=== PATIENT | male | born 1945 | race Caucasian/White ===

== ENCOUNTER 2017-12-12 11:51 | Observation (INO) | payer OTHER, SELFPAY ==
[2017-12-12] VITALS (9 sets, daily range): BP systolic 137–182; BP diastolic 63–95; PULSE 56–81; RESP 16–20; TEMP 36.3–37.1; O2SAT 96–98; BMI 23.9
--- NOTE | 2017-12-12 12:29 | PM.HP.1 ---
History of Present Illness Date Patient Seen: 12/12/17 Time Patient Seen: 12:41 Chief complaint: MELENA/POLYARTHRITIS Narrative: this patient presents with a him going melena and weakness and dizziness. I saw him on Sunday in the office he was complaining of some weakness and episodes of melena over the weekend. He appeared to be hemodynamically stable at that point and had not had a bowel movement for two days so I did some labs on him check the stool for blood and have him come back in today to the clinic. He had another melena episode on Sunday evening and continues to feel weak he's been holding his blood pressure medications hematocrit on Sunday was 25. He has also been complaining of arthritis symptoms increasing over st few days or weeks and mostly in his hands. His CRP was elevated at 7. Patient History Medical History Hypertension (Acute) Family & Social History Social History: household members none Prior Living Arrangements Apartment/Condo Safety & Behavioral: Feels Safe in Current Yes Environment Been Physically Hurt or No Threatened By a Person Suicidal Ideation Description None Tobacco & Substance use: Tobacco type cigarettes,cannabis/marijuana Smoking Status Former smoker Smoking packs per day 2 alcohol intake current alcohol intake frequency a few times a week Substance Use Type marijuana Meds Home Medications Medication Instructions Recorded Confirmed Type amlodipine 10 mg PO DAILY 12/12/17 12/12/17 History metoprolol tartrate 25 mg PO DAILY 12/12/17 12/12/17 History Allergies Allergy/AdvReac Type Severity Reaction Status Date / Time lisinopril Allergy Cramping Verified 12/12/17 12:32 of the Muscles Review of Systems Review of Systems All systems reviewed & are unremarkable except as noted in HPI and below Exam Narrative Exam Narrative: Pleasant male no acute distress looking older than his stated age. He does look rather pale in general. No jaundiced however. Oropharynx clear neck supple no JVD lungs no wheezing heart regular rhythm abdomen soft nontender extremities trace edema skin warm and dry neurological alert oriented no focal deficit speech normal. Assessment & Plan Plan: Assessment/Plan Narrative: one. Acute GI bleed with blood loss anemia hematocrit 25 as of Sunday. The patient was placed on observation statserial hematocrits rechecked. Consult to surgery for EGD. Transfuse if he drops below 24. Plan to also check a protime INR. IV fluids and n.p.o. status for now Protonix IV. 2. Polyarthritis with elevated ESR plan to check rheumatoid factor. Quality VTE Deep Vein Thrombosis/Pulmonary Embolism Present on Admission: No
[2017-12-12] MEDS: DEXTROSE 5%-0.9% NS 1,000 ML 100 ML IV (12:30)
[2017-12-12] MEDS: PANTOPRAZOLE 40 MG VIAL IV ×2 (12:30→19:54)
[2017-12-12 12:38] LABS: Hemoglobin 8.2 g/dL (13.5-17.5); Neutrophils Absolute Auto 6100 /uL (3000-5900)
[2017-12-12 12:44] LABS: Add Manual Diff / Slide Review NO; Basophils Percent Auto 1.3 % (0-2); Mean Corpuscular HGB Conc 35.4 % (30-36); Mean Corpuscular Hemoglobin 33.2 PG (26-34); Mean Corpuscular Volume 93.7 fL (80-100); Monocytes Percent Auto 12.1 % (3-14); Neutrophils Percent Auto 69.6 % (50-75); Platelet Count 298 X10^3/uL (150-400); Red Blood Cell Count 2.48 X10^6/uL (4.5-5.9); Red Cell Distribution Width 13.9 % (11.6-14.8); White Blood Cell Count 8.7 X10^3/uL (4.5-11.0)
[2017-12-12 12:45] LABS: Hematocrit 23.2 % (41-53)
[2017-12-12 12:50] LABS: Alanine Aminotransferase 66 IU/L (21-72); Albumin Globulin Ratio 1.3 (1.0-2.8); Alkaline Phosphatase 32 U/L (38-126); Aspartate Aminotransferase 49 IU/L (17-59); BUN Creatinine Ratio 23.3 (6-22); Bilirubin Total 0.6 mg/dL (0.2-1.3); Blood Urea Nitrogen 21 mg/dL (9-20); Calcium 8.6 mg/dL (8.4-10.2); Carbon Dioxide 23 mmol/L (22-32); Chloride 103 mmol/L (98-107); Estimated Glomerular Filt Rate > 60.0 mL/min (>60); Globulin 3.1 g/dL (1.7-4.1); Glucose 103 mg/dL (80-110); Potassium 4.5 mmol/L (3.4-5.1); Sodium 137 mmol/L (137-145); Total Protein 7.1 g/dL (6.3-8.2)
[2017-12-12 12:51] LABS: HEMOLYSIS 125 (0-50)
--- NOTE | 2017-12-12 13:13 | PC.ADMIT ---
Admission Note: Patient arrived to room 105 at 1200, direct admit from Dr. Holland's office, walked self to room - steady on feet. Alert and oriented x3. Denies any abdominal pain or nausea. Reports his last stool was 12/10 and was black and tarry. Denies any lightheadedness or dizziness. Oriented to room and to bed/tv/call light controls. Clothing placed in room closet and wallet locked up in safe. Call light within reach, using appropriately to make needs known. The patient,Kelsea Merrill,72 y/o, was given written information regarding hospital policies, unit procedures and contact persons. Patient's smoking status: Former smoker. Vital Signs - 8 hr 12/12/17 12:41 Temperature 97.5 F L Pulse Rate 81 Respiratory Rate 18 Blood Pressure 182/95 H Pulse Oximetry 98
[2017-12-12] MEDS: METOPROLOL 25 MG TABLET PO (14:06)
[2017-12-12 20:59] LABS: Hematocrit 26.3 % (41-53)
[2017-12-13] VITALS (19 sets, daily range): BP systolic 94–164; BP diastolic 56–81; PULSE 60–73; RESP 11–20; TEMP 35.9–37.6; O2SAT 95–97
--- NOTE | 2017-12-13 | PATH_ITS ---
[facility] Accession Number: [id number] . 01 Material submitted: . DUODENAL AND GASTRIC ULCER BIOPSIES . 02 Diagnosis: Duodenum And Stomach Ulcer, Biopsies: Duodenal mucosal with peptic duodenitis, including mild active inflammation and gastric surface foveolar metaplasia. Negative for intraepithelial lymphocytosis or villous blunting. Separate fragments of antral mucosa with no diagnostic abnormality. No evidence of Helicobacter on H/E stain. Negative for intestinal metaplasia in the gastric mucosa. Negative for dysplasia and malignancy. I/12/14/2017 . 02 Electronically signed: . Clemencia Reinoso MD, Pathologist NPI- [id number] . 01 Gross description: . Received in one formalin-filled container, labeled with the patient's name, labeled duodenal and gastric ulcer, are two 0.2-0.3 cm portions of tissue, entirely submitted in one cassette. ([id number]) /FRR . 02 Pathologist provided ICD-10: R10.9 . 02 CPT . 988362 Performed at: 01 [facility] [address] [id number] MD Néstor Young MD Phone: [phone] Performed at: 02 [facility] [address] [place], [place] [id number] MD Rahat Cardoza MD Phone: [phone]
[2017-12-13 00:28] LABS: Hematocrit 27.3 % (41-53)
[2017-12-13] MEDS: ACETAMINOPHEN 325 MG TABLET 650 MG PO (00:29)
[2017-12-13 06:04] LABS: Hematocrit 26.9 % (41-53)
[2017-12-13 06:28] LABS: Rheumatoid Factor < 8.6 IU/mL (<12.0)
[2017-12-13] MEDS: METOPROLOL 25 MG TABLET PO (09:09)
[2017-12-13] MEDS: PANTOPRAZOLE 40 MG VIAL IV ×2 (09:13→21:51)
--- NOTE | 2017-12-13 09:17 | PM.PN.1 ---
Subjective Date Patient Seen: 12/13/17 Time Patient Seen: 08:30 Interval history: Patient reports no abdominal pain, with his last bowel movement 3 days ago. He has pain in his right pinky finger, as well as diffusely to a lesser degree in his knuckles in both hands and wrists. He denies aspirin or NSAID use. Exam Vital Signs (past 8 hours): Vital Signs - 8 hr 12/13/17 03:57 12/13/17 03:58 Temperature 98.1 F Pulse Rate 70 Respiratory Rate 15 Blood Pressure 160/81 H Pulse Oximetry 97 97 Pulse Oximetry 97 Oxygen Delivery Method Room Air Oxygen Flow Rate 0 Narrative Exam Narrative: General: Patient appears comfortable, in no apparent distress HEENT: Pupils equal round reactive, mucous membranes pink and moist Neck: Supple Lungs: Clear to auscultation Cardiac: Regular rate and rhythm without appreciable murmur Abdomen: Soft, nontender, nondistended, no guarding, rebound or rigidity Extremities: Without edema neurologic alert, oriented, grossly nonfocal Dermatologic: No rash or skin lesions Musculoskeletal: Mild tenderness and swelling in the right pinky finger, without evidence in a vitas and hands or wrists Objective Labs Result Diagrams: 12/13/17 09:36 12/12/17 12:25 Labs: Laboratory Results - last 24 hr 12/12/17 12/12/17 12/12/17 12:25 12:25 12:25 WBC 8.7 RBC 2.48 L Hgb 8.2 L Hct 23.2 L MCV 93.7 MCH 33.2 MCHC 35.4 RDW 13.9 Plt Count 298 Neut % (Auto) 69.6 Lymph % (Auto) 13.0 L [place] % (Auto) 12.1 Eos % (Auto) 4.0 Baso % (Auto) 1.3 Neut # (Auto) 6100 H Sodium 137 Potassium 4.5 Chloride 103 Carbon Dioxide 23 BUN 21 H Creatinine 0.90 Estimated GFR > 60.0 BUN/Creatinine Ratio 23.3 H Glucose 103 Calcium 8.6 Total Bilirubin 0.6 AST 49 ALT 66 Alkaline Phosphatase 32 L Total Protein 7.1 Albumin 4.0 Globulin 3.1 Albumin/Globulin Ratio 1.3 Nasal Screen MRSA (PCR) Rheumatoid Factor Blood Type A Positive Antibody Screen Negative Crossmatch See Detail 12/12/17 12/12/17 12/13/17 12:30 18:00 00:17 WBC RBC Hgb Hct 26.3 L 27.3 L MCV MCH MCHC RDW Plt Count Neut % (Auto) Lymph % (Auto) [place] % (Auto) Eos % (Auto) Baso % (Auto) Neut # (Auto) Sodium Potassium Chloride Carbon Dioxide BUN Creatinine Estimated GFR BUN/Creatinine Ratio Glucose Calcium Total Bilirubin AST ALT Alkaline Phosphatase Total Protein Albumin Globulin Albumin/Globulin Ratio Nasal Screen MRSA (PCR) Negative for mrsa Rheumatoid Factor Blood Type Antibody Screen Crossmatch 12/13/17 12/13/17 05:55 05:55 WBC RBC Hgb Hct 26.9 L MCV MCH MCHC RDW Plt Count Neut % (Auto) Lymph % (Auto) [place] % (Auto) Eos % (Auto) Baso % (Auto) Neut # (Auto) Sodium Potassium Chloride Carbon Dioxide BUN Creatinine Estimated GFR BUN/Creatinine Ratio Glucose Calcium Total Bilirubin AST ALT Alkaline Phosphatase Total Protein Albumin Globulin Albumin/Globulin Ratio Nasal Screen MRSA (PCR) Rheumatoid Factor < 8.6 Blood Type Antibody Screen Crossmatch Assessment & Plan Plan: Assessment/Plan Narrative: 1. Acute gastrointestinal bleed with blood loss anemia. Etiology unclear without recent NSAID or aspirin use per patient. Hematocrit stable over the past few days. His baseline hematocrit was 40% on 08/31/2017. Monitor serial hematocrits. Anticipate upper endoscopy today. 2. Acute blood loss anemia due to 1, status post 2 unit packed red blood cell transfusion 12/12/2017. No indication for further transfusion. Continue to monitor. 3. Polyarthritis with elevated sedimentation rate. Rheumatoid factor pending. Consider further outpatient evaluation. Avoid NSAIDs. Quality VTE Deep Vein Thrombosis/Pulmonary Embolism Present on Admission: No
[2017-12-13 09:46] LABS: Hematocrit 29.4 % (41-53); Hemoglobin 10.2 g/dL (13.5-17.5)
[2017-12-13 09:50] LABS: Prothrombin Time 11.2 SECONDS (10.1-12.7)
[2017-12-13 09:53] LABS: PTT Partial Thromboplastin Tim 30 SECONDS (26.4-36.2)
--- NOTE | 2017-12-13 10:51 | CM.DANOTE ---
DCP: assessment: case receivedf, EMR reviewed and met with pt. Introduced self and role. DCP template completed with info currently available. PT is a 72 year old male who lives independently in [place]. Admitted to care of hospitalist team yesterday. PCP: Dr. Holland Paynatalia: Preston COBIAN. Work up for acute GI bleed/stool is in process. Pt may d/c home later today if deemed stable for outpt followup. He says several friends are waiting to hear when he will d/c and he will call one of them to pick him up at d/c. P: home as per above. Follow prn
--- NOTE | 2017-12-13 13:41 | PM.CN ---
History of Present Illness Date Patient Seen: 12/13/17 Time Patient Seen: 13:42 Chief complaint: MELENA/POLYARTHRITIS Reason for consult: GI hemorrhage Requesting provider: Rodrigo Holland Narrative: Mr. Merrill is a pleasant gentleman of 72 years who was admitted yesterday afternoon by Dr. Holland with complaint of weakness and melena. He was found to be significantly anemic and has received 2 units of packed red cells overnight. I have been consulted regarding the possibility of EGD as it is felt this bleed is most consistent with upper GI hemorrhage. [facility] Medical History Hypertension (Acute) Polyarthritis (Acute) Surgical History History of jeremiah hole surgery (Acute) Social History household members: none Smoking Status: Former smoker alcohol intake: current Meds Home Medications Medication Instructions Recorded Confirmed Type amlodipine 10 mg PO DAILY 12/12/17 12/12/17 History metoprolol tartrate 25 mg PO DAILY 12/12/17 12/12/17 History Allergies Allergy/AdvReac Type Severity Reaction Status Date / Time lisinopril Allergy Cramping Verified 12/12/17 12:32 of the [facility] Review of Systems Review of Systems All systems reviewed & are unremarkable except as noted in HPI and below Exam Vital Signs (past 8 hours): Vital Signs - 8 hr 12/13/17 09:00 12/13/17 12:10 Temperature 97.7 F 97.7 F Pulse Rate 67 72 Respiratory Rate 16 17 Blood Pressure 164/75 H 150/69 H Pulse Oximetry 97 96 Pulse Oximetry 96 Oxygen Delivery Method Room Air Oxygen Flow Rate 0 Narrative Exam Narrative: Very pleasant thin gentleman in no obvious distress. He reports he wants to get this over with quickly so he can go home. He also had asked if on the 1 who makes a decision regarding when he can go home. HEENT: Normocephalic and atraumatic, pupils equal round reactive to light accommodation with anicteric sclera Lungs: Clear bilaterally Heart: Regular rate and rhythm Abdomen: Soft, minimal tenderness to palpation, active bowel sounds. Extremities: No edema Objective Labs Result Diagrams: 12/13/17 09:36 12/12/17 12:25 Labs: Laboratory Results - last 24 hr 12/12/17 12/12/17 12/12/17 12:25 12:30 18:00 Hgb Hct 26.3 L PT INR APTT Nasal Screen MRSA (PCR) Negative for mrsa Rheumatoid Factor Blood Type A Positive Antibody Screen Negative Crossmatch See Detail 12/13/17 12/13/17 12/13/17 00:17 05:55 05:55 Hgb Hct 27.3 L 26.9 L PT INR APTT Nasal Screen MRSA (PCR) Rheumatoid Factor < 8.6 Blood Type Antibody Screen Crossmatch 12/13/17 12/13/17 09:36 09:36 Hgb 10.2 L Hct 29.4 L PT 11.2 INR 1.0 APTT 30 Nasal Screen MRSA (PCR) Rheumatoid Factor Blood Type Antibody Screen Crossmatch Assessment & Plan Plan: Assessment/Plan Narrative: 72-year-old gentleman with a recent upper GI hemorrhage that now seems to stop. He received 2 units of blood overnight and his hemoglobin is stabilized at 10.2. We discussed the risks and benefits of esophageal gastroduodenoscopy the patient has expressed a desire to have the procedure.
--- NOTE | 2017-12-13 13:44 | P.CONS_ITS ---
History of Present Illness Date Patient Seen: 12/13/17 Time Patient Seen: 13:42 Chief complaint: MELENA/POLYARTHRITIS Reason for consult: GI hemorrhage Requesting provider: Rodrigo Holland Narrative: Mr. Merrill is a pleasant gentleman of 72 years who was admitted yesterday afternoon by Dr. Holland with complaint of weakness and melena. He was found to be significantly anemic and has received 2 units of packed red cells overnight. I have been consulted regarding the possibility of EGD as it is felt this bleed is most consistent with upper GI hemorrhage. [facility] Medical History Hypertension (Acute) Polyarthritis (Acute) Surgical History History of jeremiah hole surgery (Acute) Social History household members: none Smoking Status: Former smoker alcohol intake: current Meds Home Medications Medication Instructions Recorded Confirmed Type amlodipine 10 mg PO DAILY 12/12/17 12/12/17 History metoprolol tartrate 25 mg PO DAILY 12/12/17 12/12/17 History Allergies Allergy/AdvReac Type Severity Reaction Status Date / Time lisinopril Allergy Cramping Verified 12/12/17 12:32 of the [facility] [place] [facility] Review of Systems Review of Systems All systems reviewed & are unremarkable except as noted in HPI and below Exam Vital Signs (past 8 hours): Vital Signs - 8 hr 3 12/13/17 09:00 12/13/17 12:10 Temperature 97.7 F 97.7 F Pulse Rate 67 72 Respiratory Rate 16 17 Blood Pressure 164/75 H 150/69 H Pulse Oximetry 97 96 Pulse Oximetry 96 Oxygen Delivery Method Room Air Oxygen Flow Rate 0 Narrative Exam Narrative: Very pleasant thin gentleman in no obvious distress. He reports he wants to get this over with quickly so he can go home. He also had asked if on the 1 who makes a decision regarding when he can go home. HEENT: Normocephalic and atraumatic, pupils equal round reactive to light accommodation with anicteric sclera Lungs: Clear bilaterally Heart: Regular rate and rhythm Abdomen: Soft, minimal tenderness to palpation, active bowel sounds. Extremities: No edema Objective Labs Result Diagrams: 12/13/17 09:36 06/13/18 12:25 Labs: Laboratory Results - last 24 hr 12/12/17 12/12/17 12/12/17 12:25 12:30 18:00 Hgb Hct 26.3 L PT INR APTT Nasal Screen MRSA (PCR) Negative for mrsa Rheumatoid Factor Blood Type A Positive Antibody Screen Negative Crossmatch See Detail 12/13/17 12/13/17 12/13/17 00:17 05:55 05:55 Hgb Hct 27.3 L 26.9 L PT INR APTT Nasal Screen MRSA (PCR) Rheumatoid Factor < 8.6 Blood Type Antibody Screen Crossmatch 12/13/17 12/13/17 09:36 09:36 Hgb 10.2 L Hct 29.4 L PT 11.2 INR 1.0 APTT 30 Nasal Screen MRSA (PCR) Rheumatoid Factor Blood Type Antibody Screen Crossmatch Assessment & Plan Plan: Assessment/Plan Narrative: 72-year-old gentleman with a recent upper GI hemorrhage that now seems to stop. He received 2 units of blood overnight and his hemoglobin is stabilized at 10.2. We discussed the risks and benefits of esophageal gastroduodenoscopy the patient has expressed a desire to have the procedure.
[2017-12-13 14:33] LABS: Hematocrit 30.4 % (41-53)
[2017-12-13] MEDS: LIDOCAINE 4% SOLN 50 ML 20 ML TOP (15:08)
[2017-12-13] MEDS: TETRACAINE/BENZOCAINE/BUTAMBEN (CETACAINE) BOTTLE 1 SPRAY TOP (15:08)
[2017-12-13] MEDS: MIDAZOLAM 5 MG/5 ML VIAL IV (15:08)
--- NOTE | 2017-12-13 15:08 | PM.OP.1 ---
Operative Date/Time/Diagnoses - Date of procedure: 12/13/17 Time of procedure: 15:09 Pre-op diagnosis: Upper GI hemorrhage Post-op diagnosis: same Procedure & Clinicians Procedure: Esophagogastroduodenoscopies with biopsies Same procedure as scheduled: Yes Indications: Upper GI hemorrhage Surgeon: Meenakshi Crowell Click Yes if Unassisted: Yes Anesthesia Type: Sedation (Versed 4 mg; fentanyl 150 mcg) Operative Notes Findings: 1. Duodenitis with heaped up granulation tissue at the junction of 1st and 2nd portions the duodenum consistent with ulcer formation. No active bleeding 2. Two areas of ulceration with shallow crater formation at the pyloric channel. No active bleeding 3. GE junction at 35 cm from the incisors with a 5 cm hiatal hernia 4. Normal-appearing posterior oropharynx and esophagus 5. Gastric and duodenal ulcers not actively bleeding but likely because of the recent upper GI hemorrhage Closure Type: not applicable Estimated Blood Loss (mL): 1 Procedure in detail: After obtaining informed consent, the patient was brought to the GI suite and placed in the left lateral decubitus position on the examination table. After placement of appropriate monitors, the patient was given incremental doses of Versed and Fentanyl until an appropriate level of sedation was achieved. A time out was held per SCOAP protocol. A bite block was gently placed between the patient's teeth. The endoscope was lubricated and then passed into the patient's posterior oropharynx. The esophagus was cannulated under direct vision and the scope was passed to the second portion of the duodenum without difficulty. The scope was then withdrawn with careful examination of all areas of the upper GI tract and mucosa. In the stomach, the instrument was retroflexed and the GE junction examined. The scope was straightened and the procedure continued with examination of the remainder of the upper GI tract. Findings are noted above. Air was aspirated from the stomach and the endoscope gently removed from the esophagus. The patient was allowed to awaken from sedation without difficulty and taken to the post-anesthesia care unit in good condition. Complications: none Condition: stable Disposition: PACU Plan for aftercare: 1. Return to ICU for continued care 2. Stable for discharge from a surgical perspective
[2017-12-13] MEDS: fentaNYL 250 MCG/5 ML INJ IV (15:09)
--- NOTE | 2017-12-13 15:39 | SUR.PHASEI ---
REPORT CALLED TO OLAMIDE ROQUE IN ICU. PT IN STABLE CONDITION, VSS. IV SITE CLEAR. PT ALERT AND TALKING TO RN. PT TOLERATING ORAL INTAKE WITHOUT ANY DIFFICULTLY. NO DIFFICULTLY SWALLOWING. PT DENIES ANY PAIN OR DISCOMFORT AT THIS TIME. AWAITING TO TRANSPORT PT BACK TO FLOOR.
--- NOTE | 2017-12-13 16:18 | SUR.PHASEI ---
PT TRANSFERED TO ACUTE CARE FLOOR IN STABLE CONDITION, VSS. BEDSIDE REPORT GIVEN TO OLAMIDE BERRY. PT ALERT AND TALKING TO STAFF. TRANSFERED CARE OF PT TO OLAMIDE BERRY AT THIS TIME.
[2017-12-13] MEDS: DEXTROSE 5%-0.9% NS 1,000 ML 100 ML IV (16:31)
--- NOTE | 2017-12-14 01:15 | PC.NURSE ---
Kelsea was comfortable at change of shift, denied any pain, stated that he wanted to sleep, I was not able to get any sleep last night, constant interruptions. IV infusing right posterior FA D5 NS @ 100 ml/hour. sats 97 % on room air, VS stable.
[2017-12-14 05:34] VITALS: BP 138/69; PULSE 71; RESP 16; TEMP 36.3; O2SAT 96
[2017-12-14 05:37] VITALS: O2SAT 99
[2017-12-14 06:29] LABS: Add Manual Diff / Slide Review NO; Basophils Percent Auto 0.9 % (0-2); Eosinophils Percent Auto 4.1 % (2-4); Hematocrit 28.1 % (41-53); Hemoglobin 9.6 g/dL (13.5-17.5); Lymphocytes Percent Auto 8.6 % (25-40); Mean Corpuscular HGB Conc 34.1 % (30-36); Mean Corpuscular Hemoglobin 31.8 PG (26-34); Monocytes Percent Auto 8.1 % (3-14); Neutrophils Absolute Auto 9000 /uL (3000-5900); Neutrophils Percent Auto 78.3 % (50-75); Platelet Count 263 X10^3/uL (150-400); Red Blood Cell Count 3.02 X10^6/uL (4.5-5.9); Red Cell Distribution Width 14.5 % (11.6-14.8); White Blood Cell Count 11.5 X10^3/uL (4.5-11.0)
[2017-12-14 07:40] VITALS: O2SAT 97
[2017-12-14 08:00] VITALS: BP 155/82; PULSE 75; RESP 18; TEMP 36.7; O2SAT 97
[2017-12-14] MEDS: SODIUM CHLORIDE 0.9% FLUSH 10 ML IV (08:44)
[2017-12-14] MEDS: PANTOPRAZOLE 40 MG VIAL IV (08:45)
[2017-12-14] MEDS: METOPROLOL 25 MG TABLET PO (08:46)
--- NOTE | 2017-12-14 10:27 | P.DS_ITS ---
History of Present Illness Date Patient Seen: 12/14/17 Time Patient Seen: 10:09 Chief complaint: MELENA/POLYARTHRITIS Narrative: This patient presents with a him going melena and weakness and dizziness. I saw him on Sunday in the office he was complaining of some weakness and episodes of melena over the weekend. He appeared to be hemodynamically stable at that point and had not had a bowel movement for two days so I did some labs on him check the stool for blood and have him come back in today to the clinic. He had another melena episode on Sunday evening and continues to feel weak he's been holding his blood pressure medications hematocrit on Sunday was 25. He has also been complaining of arthritis symptoms increasing over past few days or weeks and mostly in his hands. His CRP was elevated at 7. Discharge Providers Date of admission: 12/12/17 11:51 Primary care physician: Rodrigo Holland MD Consults: 12/12/17 12:21 Consult to General Surgery Routine Comment: Consulting Provider: Meenakshi Crowell Reason for consultation: gi bleed Has provider been notified: Yes Discharge provider: CONSTANZA Mendes Discharge Date: 12/14/17 Summary Discharge Diagnosis: 1. Upper GI hemorrhage 2. Polyarthritis 3. Hypertension Hospital Course: This is a summary for 2 day stay for this 72-year-old patient who was admitted with approximately a week of having melanotic stools, weakness and dizziness. He had a hemoglobin of 8.2 at admission and was transfused with 2 units of packed red blood cells. Repeat hemoglobin was 10.2. General surgery was consulted for an EGD as it was felt that his bleed is most consistent with an upper GI hemorrhage. The EGD revealed duodenitis with heaped up granulation tissue at the junction of the 1st and 2nd portions of the duodenum consistent with ulcer for formation. No active bleeding was seen at the time. He also has a 5 cm hiatal hernia. There are gastric and duodenal ulcers but not actively bleeding. His posterior oropharynx and esophagus appeared normal. Patient's hemoglobin this morning on date of discharge was 9.6. No active signs of bleeding. He states he has had his 1st normal bowel movement without any melena in over a week. He is taking a regular diet without abdominal discomfort, nausea, emesis. His vital signs remained unremarkable during the hospitalization. He will remain on his amlodipine and metoprolol for control of his blood pressure. He will need to be followed for his hemoglobin levels. He has been provided discharge instructions for GI bleed , gastritis, and has been encouraged to limit or stop his intake of alcohol. Mr. Merrill is stable at this point in time and ready for discharge. Exam Vital Signs (past 8 hours): Vital Signs - 8 hr 3 12/14/17 05:34 12/14/17 05:37 12/14/17 07:40 Temperature 97.3 F L Pulse Rate 71 Respiratory Rate 16 Blood Pressure 138/69 H Pulse Oximetry 96 99 97 3 12/14/17 08:00 Temperature 98.1 F Pulse Rate 75 Respiratory Rate 18 Blood Pressure 155/82 H Pulse Oximetry 97 Pulse Oximetry 97 Oxygen Delivery Method Room Air Oxygen Flow Rate 0 Narrative Exam Narrative: Patient sitting in bed Const General: cooperative, healthy appearing, comfortable and well developed Nutritional Appearance: average body habitus Orientation: alert, awake and oriented x3 HENMT Head: normal to inspection, normocephalic and atraumatic Mouth: oral mucosae normal Eyes General: appearance normal, both eyes and all related structures Pupils: PERRL Neck Neck: normal visual inspection, full ROM and supple Other: No JVD, lymphadenopathy Chest Chest: normal inspection of the chest Resp Effort & Inspection: normal respiratory effort and able to speak in complete sentences Auscultation: clear to auscultation bilaterally Cardio Rate: regular rate Heart Sounds: S1 normal and S2 normal Other: No murmurs, rubs, clicks GI Inspection: normal to inspection Palpation: soft Auscultation: normal bowel sounds Back/Spine/Pelvis Back: normal to inspection Skin General: no rashes or lesions noted Neuro General: alert, awake and oriented x3 Extrem Other: Mild tenderness and swelling in right hand. Psych Appearance: grossly normal Speech and Movement: speech and movement normal Mood: congruent mood Affect: normal affect Attitude: cooperative Thought Process: normal Thought Content: normal Judgment: judgment good Objective Labs Result Diagrams: 12/14/17 06:00 12/12/17 12:25 Labs: Laboratory Results - last 24 hr 12/13/17 12/14/17 14:15 06:00 WBC 11.5 H RBC 3.02 L Hgb 9.6 L Hct 30.4 L 28.1 L MCV 93.0 MCH 31.8 MCHC 34.1 RDW 14.5 Plt Count 263 Neut % (Auto) 78.3 H Lymph % (Auto) 8.6 L [place] % (Auto) 8.1 Eos % (Auto) 4.1 H Baso % (Auto) 0.9 Neut # (Auto) 9000 H Discharge Plan Discharge Plan Patient Disposition: Home, Self-Care Discharge Med Rec/Prescriptions Prescriptions: New pantoprazole [Protonix] 40 mg tablet,delayed release (DR/EC) 40 mg PO QAM Qty: 30 RF: 3 Continue amlodipine 10 mg tablet 10 mg PO DAILY RF: 0 metoprolol tartrate 25 mg tablet 25 mg PO DAILY RF: 0 Follow up/Referrals: Rodrigo Holland MD [Primary Care Provider] - 3-5 Days (Appt Sundaydecember 17 @[address] Eric nielson) Provider Discharge Instructions Diet: Diet as Tolerated and Regular Diet comment: Avoid alcohol intake Activity: As tolerated Oxygen: Room air Visit Report/Discharge Packet Instructions: Gastritis, DI for Gastritis, Gastrointestinal Bleeding Visit Report Forms: Stroke Signs & Symptoms Discharge Data Primary Care Provider: Rodrigo Holland Attending Provider: Rodrigo Holland Admit Date/Time: 12/12/17 11:51 Quality VTE Deep Vein Thrombosis/Pulmonary Embolism Present on Admission: No
== END 2017-12-14 11:07 | disposition home or self-care (01) ==
LOC: ICU 12-13 13:23 → AC 12-13 16:31
PROVIDERS: Internal Medicine; Surgery; Admitting Provider Internal Medicine; PCP Internal Medicine; Visit Provider Internal Medicine
PROC: 0DJ08ZZ Inspection of Upper Intestinal Tract, Via Natural or Artificial Opening Endoscopic (ICD-10-PCS; CPT 43235; principal; 2017-12-13 15:00)
DX: K29.80 Duodenitis without bleeding (principal); K25.9 Gastric ulcer, unspecified as acute or chronic, without hemorrhage or perforation; K26.9 Duodenal ulcer, unspecified as acute or chronic, without hemorrhage or perforation; K92.2 Gastrointestinal hemorrhage, unspecified; K92.1 Melena; M13.0 Polyarthritis, unspecified; K44.9 Diaphragmatic hernia without obstruction or gangrene; I10 Essential (primary) hypertension; Z87.891 Personal history of nicotine dependence
CPT/HCPCS: 43239; 36415; 36430; 36592; 80053; 85014; 85018; 85025; 85610; 85730; 86430; 86850; 86900; 86901; 87797; G0378; P9016; C9113; G0379; J2250; J3010

== ENCOUNTER → 2017-12-21 10:31 | Outpatient (CLI) | payer OTHER, SELFPAY ==
[2017-12-12 12:00] VITALS: BMI 23.9
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
== END ==
PROVIDERS: PCP Internal Medicine; Visit Provider Student in an Organized Health Care Education/Training Program
DX: M25.549 Pain in joints of unspecified hand (principal); M19.042 Primary osteoarthritis, left hand; M19.041 Primary osteoarthritis, right hand
CPT/HCPCS: 73130

== ENCOUNTER → 2020-07-08 10:00 | Outpatient (CLI) | payer OTHER, MEDICAID, SELFPAY ==
[2017-12-12 12:00] VITALS: BMI 23.9
[2020-07-08 11:29] LABS: Add Manual Diff / Slide Review NO; Basophils Absolute Auto 200 /uL (0-100); Basophils Percent Auto 1.9 % (0-2); Eosinophils Absolute Auto 300 /uL (0-450); Eosinophils Percent Auto 2.7 % (2-4); Hematocrit 37.7 % (41-53); Hemoglobin 12.7 g/dL (13.5-17.5); Lymphocytes Absolute Auto 1400 /uL (1100-4500); Mean Corpuscular HGB Conc 33.8 % (30-36); Mean Corpuscular Hemoglobin 31.5 PG (26-34); Mean Corpuscular Volume 93.3 fL (80-100); Monocytes Absolute Auto 1200 /uL (0-900); Neutrophils Absolute Auto 6300 /uL (1500-7000); Neutrophils Percent Auto 67.4 % (50-75); Platelet Count 352 X10^3/uL (150-400); Red Blood Cell Count 4.04 X10^6/uL (4.5-5.9); Red Cell Distribution Width 14.5 % (11.6-14.8); White Blood Cell Count 9.3 X10^3/uL (4.5-11.0)
[2020-07-08 12:32] LABS: Alanine Aminotransferase 18 IU/L (<50); Albumin 4.4 g/dL (3.5-5.0); Albumin Globulin Ratio 1.5 (1.0-2.8); Alkaline Phosphatase 43 U/L (38-126); Aspartate Aminotransferase 23 IU/L (17-59); BUN Creatinine Ratio 16.9 (6-22); Bilirubin Total 0.5 mg/dL (0.2-1.3); Blood Urea Nitrogen 23 mg/dL (9-20); Calcium 9.4 mg/dL (8.4-10.2); Carbon Dioxide 23 mmol/L (22-32); Chloride 104 mmol/L (98-107); Cholesterol 184 mg/dL (140-199); Estimated Glomerular Filt Rate 51.2 mL/min (>60); Globulin 2.9 g/dL (1.7-4.1); Glucose 111 mg/dL (80-110); HDL Cholesterol 52 mg/dL (40-60); HEMOLYSIS < 15 (0-50); LDL Cholesterol Calculated 96 mg/dL (<100); Potassium 4.7 mmol/L (3.4-5.1); Sodium 136 mmol/L (137-145); Total Protein 7.3 g/dL (6.3-8.2); Triglycerides 179 mg/dL (35-150)
== END ==
PROVIDERS: PCP Internal Medicine; Referring Provider Internal Medicine; Visit Provider Internal Medicine
DX: I10 Essential (primary) hypertension (principal); E78.2 Mixed hyperlipidemia
CPT/HCPCS: 36415; 80053; 80061; 85025

== ENCOUNTER → 2020-11-04 15:16 | Outpatient (CLI) | payer OTHER, SELFPAY ==
[2017-12-12 12:00] VITALS: BMI 23.9
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
== END ==
PROVIDERS: PCP Internal Medicine; Referring Provider Student in an Organized Health Care Education/Training Program; Visit Provider Student in an Organized Health Care Education/Training Program
DX: S22.41XA Multiple fractures of ribs, right side, initial encounter for closed fracture (principal); S22.42XA Multiple fractures of ribs, left side, initial encounter for closed fracture; R07.81 Pleurodynia; M54.9 Dorsalgia, unspecified; M47.816 Spondylosis without myelopathy or radiculopathy, lumbar region; V19.9XXA Pedal cyclist (driver) (passenger) injured in unspecified traffic accident, initial encounter
CPT/HCPCS: 71101; 72072; 72100

== ENCOUNTER 2020-11-05 09:48 | Inpatient (IN) | payer OTHER, MEDICAID, SELFPAY ==
[2017-12-12 12:00] VITALS: BMI 23.9
[2020-11-05] VITALS (19 sets, daily range): BP systolic 136–195; BP diastolic 64–99; PULSE 57–100; RESP 16–26; TEMP 36.2–36.6; O2SAT 90–98; BMI 26.4
[2020-11-05 10:22] LABS: Add Manual Diff / Slide Review NO; Basophils Absolute Auto 200 /uL (0-100); Basophils Percent Auto 0.7 % (0-2); Eosinophils Absolute Auto 0 /uL (0-450); Hematocrit 37.3 % (41-53); Hemoglobin 12.5 g/dL (13.5-17.5); Lymphocytes Absolute Auto 800 /uL (1100-4500); Lymphocytes Percent Auto 3.1 % (25-40); Mean Corpuscular HGB Conc 33.5 % (30-36); Mean Corpuscular Volume 92.6 fL (80-100); Monocytes Absolute Auto 2200 /uL (0-900); Monocytes Percent Auto 8.5 % (3-14); Neutrophils Absolute Auto 22700 /uL (1500-7000); Neutrophils Percent Auto 87.7 % (50-75); Platelet Count 352 X10^3/uL (150-400); Red Blood Cell Count 4.03 X10^6/uL (4.5-5.9); Red Cell Distribution Width 15.3 % (11.6-14.8); White Blood Cell Count 25.9 X10^3/uL (4.5-11.0)
[2020-11-05 10:24] LABS: INR 1.1 (0.9-1.3); Prothrombin Time 12.3 SECONDS (10.1-12.7)
[2020-11-05 10:26] LABS: PTT Partial Thromboplastin Tim 30 SECONDS (26.4-36.2)
[2020-11-05 10:28] LABS: Albumin 4.4 g/dL (3.5-5.0); Albumin Globulin Ratio 1.4 (1.0-2.8); Alkaline Phosphatase 42 U/L (38-126); Aspartate Aminotransferase 37 IU/L (17-59); BUN Creatinine Ratio 25.9 (6-22); Bilirubin Total 1.4 mg/dL (0.2-1.3); Blood Urea Nitrogen 29 mg/dL (9-20); Calcium 9.1 mg/dL (8.4-10.2); Carbon Dioxide 23 mmol/L (22-32); Chloride 97 mmol/L (98-107); Estimated Glomerular Filt Rate > 60.0 mL/min (>60); Globulin 3.2 g/dL (1.7-4.1); Glucose 217 mg/dL (80-110); Potassium 4.2 mmol/L (3.4-5.1); Sodium 134 mmol/L (137-145); Total Protein 7.6 g/dL (6.3-8.2)
[2020-11-05 10:34] LABS: Alanine Aminotransferase 27 IU/L (<50); HEMOLYSIS 28 (0-50)
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
[2020-11-05] MEDS: MORPHINE 2 MG/ML INJ IV ×2 (10:45→11:34)
[2020-11-05] MEDS: PANTOPRAZOLE 40 MG VIAL 80 MG IV (10:45)
[2020-11-05] MEDS: ONDANSETRON 4 MG/2 ML INJ IV ×2 (10:45→16:51)
[2020-11-05 11:02] LABS: Lactate (Lactic Acid) 4.9 mmol/L (0.7-2.1)
[2020-11-05] MEDS: SODIUM CHLORIDE 0.9% 1,000 ML 1000 ML IV ×2 (11:10→12:11)
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
[2020-11-05] MEDS: PIPERACILLIN-TAZO 4.5 GM/100 ML FROZ.PIGGY IV (12:02)
[2020-11-05 12:21] LABS: COVID19 - ADMIT (NP swab/PCR) Negative (Negative)
[2020-11-05 12:32] LABS: Reflexed Lactate in 2 Hours Y
[2020-11-05 12:54] LABS: Lactate 2HR (Lactic Acid Rflx) 1.1 mmol/L (0.7-2.1)
[2020-11-05] MEDS: SODIUM CHLORIDE 0.9% 1,000 ML 150 ML IV (13:50)
--- NOTE | 2020-11-05 15:17 | PC.NURSE ---
Admit note: Patient admitted to room 225 from ED, used slider board to transfer patient from [facility] to bed due to rib pain, chest guarding. Received on )2 at 2L via NC, 94%. IVF infusing. NPO. Dr. Curtis at bedside on arrival to floor [id number]. Awaiting for admit orders. Oriented to room, environment and plan of care. Call light within reach. Bedside shift report to Lucy QUIÑONEZ at [phone]
[2020-11-05] MEDS: HYDROCODONE/ACET 5/325 TABLET 1 TAB PO (16:19)
[2020-11-05] MEDS: DEXTROSE 5%-0.9% NS 1,000 ML 100 ML IV (16:19)
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
[2020-11-05] MEDS: PIPERACILLIN-TAZO 3.375 GM/50 ML FROZ.PIGGY IV (17:02)
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
[2020-11-05] MEDS: LIDOCAINE PATCH 1 EACH ADH..PATCH TOP (21:11)
[2020-11-05] MEDS: GABAPENTIN 300 MG CAPSULE PO (21:13)
[2020-11-05] MEDS: DOCUSATE 100 MG CAPSULE PO (21:13)
[2020-11-05] MEDS: OXYCODONE IR 10 MG TABLET PO (21:13)
--- NOTE | 2020-11-05 22:08 | PC.NURSE ---
Assumed care of patient at 1999 from Inna Ayala. Pt resting in bed comfortable at that time. Expiratory rattling to the lungs that clears when he takes a deep breath. Pt SaO2 ranging from 90-94% on 2LNC. Pt educated and encouraged to deep breathe and cough. Incentive spirometry instructions provided both by RN and RT. Pt able to demonstrate use of IS, reaching about 1000 per breath. PRN oxycodone and scheduled lidocaine patch/gabapentin/colace given around 2114. Upon rechecking pt at 2149, pt states these medications significantly helped his pain. Pt O2 sats still low 90s on the nasal cannula. Occasionally the prongs of the cannula will dislodge from nares or pulse oximeter will slide off of patient finger and sats will lower to the 80s, but when replaced oxygen saturations go back up to the 90s.
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
--- NOTE | 2020-11-05 23:50 | DI.CT.S_ITS ---
PROCEDURE: CT ANGIO CHEST PE PROTOCOL INDICATIONS: Desaturation requiring high flow, multiple rib fractures TECHNIQUE: After the administration of intravenous contrast, 2 mm thick sections acquired from the pulmonary apices to the posterior costophrenic angles. 3-dimensional maximum intensity projection (MIP) coronal and sagittal reformats were then acquired through the thorax. For radiation dose reduction, the following was used: automated exposure control, adjustment of mA and/or kV according to patient size. COMPARISON: [facility], CT, CT CHEST ABD PEL W CON, 11/05/2020, 10:52. [facility], CR, XR RIBS RT MIN 3V W CXR 1V, 11/04/2020, 15:24. [facility], CR, XR CHEST 1V, 11/05/2020, 23:13. FINDINGS: Image quality: Excellent. Pulmonary arteries: Pulmonary arteries are normal in size, and demonstrate no intraluminal filling defects to suggest central pulmonary embolism. Lungs and pleura: Small bilateral pleural effusions are seen, right larger than left. Overlying consolidative change is seen, which is attributed to atelectasis. Central and peripheral airways are patent. There is a small amount of debris seen within the trachea. Mediastinum: Heart size is normal, without pericardial effusion. No mediastinal or hilar adenopathy. Thoracic aorta is normal in caliber and enhancement. Esophagus is normal in caliber, without hiatal hernia. Esophageal wall thickening is seen distally. Bones and chest wall: Right lateral rib fractures are again seen involving ribs 3 through 9. No suspicious bony lesions. Thyroid gland demonstrates no significant abnormality. No axillary or supraclavicular adenopathy. Abdomen: Visualized upper abdominal solid organs appear normal in the early arterial phase of enhancement. IMPRESSION: Negative for pulmonary embolism. Right-sided rib fractures are again seen. No associated pneumothorax is seen. Small bilateral pleural effusions are seen, right larger than left, with associated overlying consolidation, which is attributed to atelectasis. Please consider a mild degree of infiltrate, however. Esophageal wall thickening is seen. Please consider soft the joint is. Note: No significant discrepancy from the preliminary report. Dictated by: Oskar Belle M.D. on 11/06/2020 at 8:05 Approved by: Oskar Belle M.D. on 11/06/2020 at 8:08
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
[2020-11-06] VITALS (14 sets, daily range): BP systolic 108–164; BP diastolic 53–77; PULSE 73–84; RESP 16–24; TEMP 36.5–37.1; O2SAT 89–96; BMI 25.1
[2020-11-06 01:00] LABS: HCO3 ABG 22 mmol/L (22-26); Oxygen Saturation ABG 87 % (95-100); PO2 ABG 52 mmHg (80-100); TCO2 ABG 23 mmol/L (21-31); pH ABG 7.41 (7.35-7.45)
[2020-11-06 01:03] LABS: Fractionated Inspired Oxygen 60
[2020-11-06 01:09] LABS: BUN Creatinine Ratio 20.6 (6-22); Blood Urea Nitrogen 21 mg/dL (9-20); Calcium 7.9 mg/dL (8.4-10.2); Carbon Dioxide 25 mmol/L (22-32); Chloride 105 mmol/L (98-107); Estimated Glomerular Filt Rate > 60.0 mL/min (>60); Glucose 128 mg/dL (80-110); HEMOLYSIS < 15 (0-50); Lactate (Lactic Acid) 1.1 mmol/L (0.7-2.1); Potassium 4.4 mmol/L (3.4-5.1); Sodium 135 mmol/L (137-145)
[2020-11-06 01:13] LABS: Add Manual Diff / Slide Review NO; Basophils Absolute Auto 100 /uL (0-100); Basophils Percent Auto 0.6 % (0-2); Eosinophils Absolute Auto 100 /uL (0-450); Eosinophils Percent Auto 0.8 % (2-4); Hemoglobin 10.1 g/dL (13.5-17.5); Lymphocytes Absolute Auto 1100 /uL (1100-4500); Lymphocytes Percent Auto 6.8 % (25-40); Mean Corpuscular HGB Conc 33.7 % (30-36); Mean Corpuscular Hemoglobin 31.3 PG (26-34); Mean Corpuscular Volume 93.1 fL (80-100); Monocytes Absolute Auto 1300 /uL (0-900); Monocytes Percent Auto 8.4 % (3-14); Neutrophils Absolute Auto 13400 /uL (1500-7000); Neutrophils Percent Auto 83.4 % (50-75); Platelet Count 270 X10^3/uL (150-400); Red Blood Cell Count 3.22 X10^6/uL (4.5-5.9); Red Cell Distribution Width 15.4 % (11.6-14.8); White Blood Cell Count 16.1 X10^3/uL (4.5-11.0)
[2020-11-06 01:19] LABS: NT-proBNP (BNP-Adult 18+) 423 pg/mL (<125)
[2020-11-06] MEDS: PIPERACILLIN-TAZO 3.375 GM/50 ML FROZ.PIGGY IV ×3 (03:01→16:57)
[2020-11-06] MEDS: DEXTROSE 5%-0.9% NS 1,000 ML 100 ML IV (03:03)
[2020-11-06 05:13] LABS: Add Manual Diff / Slide Review NO; Basophils Absolute Auto 200 /uL (0-100); Basophils Percent Auto 1.2 % (0-2); Eosinophils Absolute Auto 200 /uL (0-450); Eosinophils Percent Auto 1.4 % (2-4); Hematocrit 29.6 % (41-53); Lymphocytes Absolute Auto 1000 /uL (1100-4500); Lymphocytes Percent Auto 6.9 % (25-40); Mean Corpuscular HGB Conc 33.9 % (30-36); Mean Corpuscular Hemoglobin 31.4 PG (26-34); Mean Corpuscular Volume 92.8 fL (80-100); Monocytes Absolute Auto 1300 /uL (0-900); Monocytes Percent Auto 9.3 % (3-14); Neutrophils Absolute Auto 11300 /uL (1500-7000); Neutrophils Percent Auto 81.2 % (50-75); Platelet Count 248 X10^3/uL (150-400); Red Blood Cell Count 3.19 X10^6/uL (4.5-5.9); Red Cell Distribution Width 15.4 % (11.6-14.8); White Blood Cell Count 13.9 X10^3/uL (4.5-11.0)
[2020-11-06 05:20] LABS: BUN Creatinine Ratio 18.2 (6-22); Blood Urea Nitrogen 18 mg/dL (9-20); Carbon Dioxide 24 mmol/L (22-32); Chloride 107 mmol/L (98-107); Estimated Glomerular Filt Rate > 60.0 mL/min (>60); Glucose 121 mg/dL (80-110); HEMOLYSIS < 15 (0-50); Potassium 4.2 mmol/L (3.4-5.1); Sodium 135 mmol/L (137-145)
[2020-11-06] MEDS: ALBUTEROL/IPRATROPIUM 3 ML AMPUL INH ×5 (06:04→20:25)
[2020-11-06] MEDS: TAMSULOSIN 0.4 MG CAPSULE PO (08:55)
[2020-11-06] MEDS: LOSARTAN 50 MG TABLET PO (08:55)
[2020-11-06] MEDS: DOCUSATE 100 MG CAPSULE PO ×2 (08:56→20:23)
[2020-11-06] MEDS: ACETAMINOPHEN 325 MG TABLET 650 MG PO (08:56)
[2020-11-06] MEDS: OXYCODONE IR 10 MG TABLET PO ×2 (08:56→14:33)
[2020-11-06] MEDS: AMLODIPINE 5 MG TABLET 10 MG PO (08:56)
[2020-11-06] MEDS: polyethylene glycoL 3350 17 GM POWD.PACK PO (08:57)
[2020-11-06] MEDS: ENOXAPARIN 40 MG/0.4 ML SYRINGE SUBCUT (08:57)
[2020-11-06] MEDS: PANTOPRAZOLE DR 40 MG TABLET PO (08:57)
[2020-11-06] MEDS: SODIUM CHLORIDE 0.9% FLUSH 10 ML IV ×2 (09:00→20:24)
--- NOTE | 2020-11-06 09:33 | DI.RAD.S_ITS ---
PROCEDURE: XR CHEST 1V INDICATIONS: hypoxia, suspect mucous plug TECHNIQUE: One view of the chest was acquired. COMPARISON: [facility], CT, CT ANGIO CHEST PE PROTOCOL, 11/06/2020, 0:01. Merged With [facility], CR, XR CHEST 1VW (PORTABLE), 09/06/2016, 22:21. [facility], CR, XR RIBS RT MIN 3V W CXR 1V, 11/04/2020, 15:24. [facility], CT, CT CHEST ABD PEL W CON, 11/05/2020, 10:52. [facility], CR, XR CHEST 1V, 11/05/2020, 23:13. FINDINGS: Surgical changes and devices: None. Lungs and pleura: An incomplete inspiratory result is noted, causing a crowded appearance to the lung markings. No pneumothorax is seen. Small bilateral pleural effusions are seen, with overlying atelectasis. Mediastinum: Mediastinal contours appear normal. Heart size is normal. Bones and chest wall: No suspicious bony lesions. Multiple right-sided rib fractures are again seen. Remote left-sided rib fractures and a left distal clavicle fracture can be seen. Overlying soft tissues appear unremarkable. IMPRESSION: Low lung volumes, without a pneumothorax seen. Small bilateral pleural effusions, with overlying atelectasis. No additional focal areas of pulmonary consolidation can be seen. Dictated by: Oskar Belle M.D. on 11/06/2020 at 9:03 Approved by: Oskar Belle M.D. on 11/06/2020 at 9:05
--- NOTE | 2020-11-06 10:23 | P.PN_ITS ---
Subjective Subjective Date Patient Seen: 11/06/20 Time Patient Seen: 09:30 Interval history: Pt continues to desat when oxygen is weaned down. Denies pain with inspiration. Can get IS to 500 only. Exam Vital Signs (past 8 hours): - 11/06/20 04:27 11/06/20 06:04 11/06/20 09:12 Temperature 98.7 F 98.6 F Pulse Rate 79 74 84 Respiratory Rate 20 20 24 Blood Pressure 163/72 H 164/77 H Pulse Oximetry 92 95 93 11/06/20 09:33 11/06/20 10:01 11/06/20 10:10 Temperature Pulse Rate 77 Respiratory Rate 20 Blood Pressure Pulse Oximetry 90 L 89 L 92 Oxygen Delivery Method High Flow Nasal Cannula Oxygen Flow Rate 10 Narrative Exam Narrative: GENERAL: Alert,comfortable Appears stated age. Answers questions promptly and appropriately. Vital signs noted. HENT: Normocephalic, atraumatic. Hearing intact. EYES: Conjunctiva pink, sclera white, no periorbital swelling. CARDIOVASCULAR: Regular rate. RESPIRATORY: Non-tachypneic, breathing comfortably on NC O2. Wet voice; NT suctioned by RT. GASTROINTESTINAL: Abdomen soft and non-distended MUSCULOSKELETAL: Equal tone and mass bilaterally. SNEURO: Alert and Oriented X 3. No gross sensory deficits, or cognitive issues. PSYCH: Appropriate affect and mood. Objective Imaging Chest x-ray: Radiologist's impression: [address] [id number] ReportSigned Patient: Kelsea Merrill R#: [id number]: 6Acct:[id number]/Sex: 75 / MDate of Service: 11/06/20Loc: [id number] Number: [id number] Procedure: XR chest 1V Ordering Provider: Kane Wan D.O. PROCEDURE: XR CHEST 1V INDICATIONS: hypoxia, suspect mucous plug TECHNIQUE: One view of the chest was acquired. COMPARISON: [facility], CT, CT ANGIO CHEST PE PROTOCOL, 11/06/2020, 0:01. [facility], CR, XR CHEST 1VW (PORTABLE), 09/06/2016, 22:21. [facility], CR, XR RIBS RT MIN 3V W CXR 1V, 11/04/2020, 15:24. [facility], CT, CT CHEST ABD PE L W CON, 11/05/2020, 10:52. [facility], CR, XR CHEST 1V, 11/05/2020, 23:13. FINDINGS: Surgical changes and devices: None. Lungs and pleura: An incomplete inspiratory result is noted, causing a crowded appearance to the lung markings. No pneumothorax is seen. Small bilateral pleural effusions are seen, with overlying atelectasis. Mediastinum: Mediastinal contours appear normal. Heart size is normal. Bones and chest wall: No suspicious bony lesions. Multiple right-sided rib fractures are again seen. Remote left-sided rib fractures and a left distal clavicle fracture can be seen. Overlying soft tissues appear unremarkable. IMPRESSION: Low lung volumes, without a pneumothorax seen. Small bilateral pleural effusions, with overlying atelectasis. No additional focal areas of pulmonary consolidation can be seen. Dictated by: Oskar Belle M.D. on 11/06/2020 at 9:03 Labs Result Diagrams: 11/06/20 05:02 11/06/20 05:02 Labs: Laboratory Results - last 24 hr 11/05/20 11/05/20 11/05/20 10:02 10:02 10:02 WBC RBC Hgb Hct MCV MCH MCHC RDW Plt Count Neut % (Auto) Lymph % (Auto) [place] % (Auto) Eos % (Auto) Baso % (Auto) Neut # (Auto) Lymph # (Auto) [place] # (Auto) Eos # (Auto) Baso # (Auto) PT 12.3 INR 1.1 APTT 30 ABG pH ABG pCO2 ABG pO2 ABG HCO3 ABG Total CO2 ABG O2 Saturation ABG Base Excess FiO2 Sodium 134 L Potassium 4.2 Chloride 97 L Carbon Dioxide 23 BUN 29 H Creatinine 1.12 Estimated GFR > 60.0 BUN/Creatinine Ratio 25.9 H Glucose 217 H Lactate Calcium 9.1 Total Bilirubin 1.4 H AST 37 ALT 27 Alkaline Phosphatase 42 NT-Pro-B Natriuret Pep Total Protein 7.6 Albumin 4.4 Globulin 3.2 Albumin/Globulin Ratio 1.4 Procalcitonin Nasal Screen MRSA (PCR) SARS-CoV-2 (PCR) Blood Type A Positive Antibody Screen Negative 05/07/21 05/07/21 05/07/21 10:02 10:02 11:20 WBC RBC Hgb Hct MCV MCH MCHC RDW Plt Count Neut % (Auto) Lymph % (Auto) [place] % (Auto) Eos % (Auto) Baso % (Auto) Neut # (Auto) Lymph # (Auto) [place] # (Auto) Eos # (Auto) Baso # (Auto) PT INR APTT ABG pH ABG pCO2 ABG pO2 ABG HCO3 ABG Total CO2 ABG O2 Saturation ABG Base Excess FiO2 Sodium Potassium Chloride Carbon Dioxide BUN Creatinine Estimated GFR BUN/Creatinine Ratio Glucose Lactate 4.9 H* Calcium Total Bilirubin AST ALT Alkaline Phosphatase NT-Pro-B Natriuret Pep Total Protein Albumin Globulin Albumin/Globulin Ratio Procalcitonin 0.40 Nasal Screen MRSA (PCR) SARS-CoV-2 (PCR) Negative Blood Type Antibody Screen 11/05/20 11/06/20 11/06/20 12:35 00:00 00:40 WBC RBC Hgb Hct MCV MCH MCHC RDW Plt Count Neut % (Auto) Lymph % (Auto) [place] % (Auto) Eos % (Auto) Baso % (Auto) Neut # (Auto) Lymph # (Auto) [place] # (Auto) Eos # (Auto) Baso # (Auto) PT INR APTT ABG pH 7.41 ABG pCO2 35.0 ABG pO2 52 L ABG HCO3 22 ABG Total CO2 23 ABG O2 Saturation 87 L ABG Base Excess -2.0 FiO2 60 Sodium Potassium Chloride Carbon Dioxide BUN Creatinine Estimated GFR BUN/Creatinine Ratio Glucose Lactate 1.1 Calcium Total Bilirubin AST ALT Alkaline Phosphatase NT-Pro-B Natriuret Pep Total Protein Albumin Globulin Albumin/Globulin Ratio Procalcitonin Nasal Screen MRSA (PCR) Negative for mrsa SARS-CoV-2 (PCR) Blood Type Antibody Screen 11/06/20 11/06/20 11/06/20 00:45 00:48 00:48 WBC 16.1 H RBC 3.22 L Hgb 10.1 L Hct 30.0 L MCV 93.1 MCH 31.3 MCHC 33.7 RDW 15.4 H Plt Count 270 Neut % (Auto) 83.4 H Lymph % (Auto) 6.8 L Con[place] % (Auto) 8.4 Eos % (Auto) 0.8 L Baso % (Auto) 0.6 Neut # (Auto) 53691 H Lymph # (Auto) 1100 [place] # (Auto) 1300 H Eos # (Auto) 100 Baso # (Auto) 100 PT INR APTT ABG pH ABG pCO2 ABG pO2 ABG HCO3 ABG Total CO2 ABG O2 Saturation ABG Base Excess FiO2 Sodium 135 L Potassium 4.4 Chloride 105 Carbon Dioxide 25 BUN 21 H Creatinine 1.02 Estimated GFR > 60.0 BUN/Creatinine Ratio 20.6 Glucose 128 H Lactate 1.1 Calcium 7.9 L Total Bilirubin AST ALT Alkaline Phosphatase NT-Pro-B Natriuret Pep 423 H Total Protein Albumin Globulin Albumin/Globulin Ratio Procalcitonin Nasal Screen MRSA (PCR) SARS-CoV-2 (PCR) Blood Type Antibody Screen 11/06/20 11/06/20 05:02 05:02 WBC 13.9 H RBC 3.19 L Hgb 10.0 L Hct 29.6 L MCV 92.8 MCH 31.4 MCHC 33.9 RDW 15.4 H Plt Count 248 Neut % (Auto) 81.2 H Lymph % (Auto) 6.9 L Concho % (Auto) 9.3 Eos % (Auto) 1.4 L Baso % (Auto) 1.2 Neut # (Auto) 18142 H Lymph # (Auto) 1000 L [place] # (Auto) 1300 H Eos # (Auto) 200 Baso # (Auto) 200 H PT INR APTT ABG pH ABG pCO2 ABG pO2 ABG HCO3 ABG Total CO2 ABG O2 Saturation ABG Base Excess FiO2 Sodium 135 L Potassium 4.2 Chloride 107 Carbon Dioxide 24 BUN 18 Creatinine 0.99 Estimated GFR > 60.0 BUN/Creatinine Ratio 18.2 Glucose 121 H Lactate Calcium 8.0 L Total Bilirubin AST ALT Alkaline Phosphatase NT-Pro-B Natriuret Pep Total Protein Albumin Globulin Albumin/Globulin Ratio Procalcitonin Nasal Screen MRSA (PCR) SARS-CoV-2 (PCR) Blood Type Antibody Screen PFSH Medical History Hypertension Multiple fractures of ribs of left side Polyarthritis Surgical History History of jeremiah hole surgery Family History Father Cancer Social History household members: none Smoking Status: Former smoker alcohol intake: current Assessment & Plan Assessment and plan (1) Pneumonia: Qualifiers: Laterality: unspecified laterality Lung location: lower lobe of lung Pneumonia type: due to unspecified organism Qualified Code(s): J18.9 - Pneumonia, unspecified organism Status: Acute (2) Closed rib fracture: Qualifiers: Encounter type: initial encounter Laterality: right Rib fracture type: multiple ribs Qualified Code(s): S22.41XA - Multiple fractures of ribs, right side, initial encounter for closed fracture Status: Acute Assessment & Plan narrative: Pt admitted last night with desat and PNA after fall and rib fractures. He denies respirations are limited by pain. He says he has had rib fractures before and had a similar experience. Plan: continue pulmonary toilet ambulate as tolerated pain control with rib fracture regimen COVID-19 COVID-19 status: Negative Result date/Date tested (Pos, Neg/Pending): 11/05/20 Time Spent With Patient Time with patient: 15-24 minutes Quality VTE Deep Vein Thrombosis/Pulmonary Embolism Present on Admission: No
--- NOTE | 2020-11-06 10:23 | PC.NURSE ---
Addendum entered by Lois Hodge R.N. 11/06/20 15:01: Pt with 50 ml urine out this shift. Bladder scanned for 759 ml in bladder, reported to Dr. Wan and order received for indwelling catheter placement. Catheter placed without issue and urine immediately resulted, continuing to drain at this time. Addendum entered by Lois Hodge R.N. 11/06/20 14:22: Pt up to chair with OT and back to bed with PT. RT NT suctioned pt again this afternoon. Pt now 90-95% on 3L HFNC. Original Note: Day Shift Note Pt initially with SpO2 of 96-97% on 12L HFNC. Repositioned in bed for breakfast, declined to get up to chair due to pain and shortness of breath but agreeable to get up for lunch. Lung sounds coarse with rhonchi throughout, very wet/gurgly to upper airways. Encouraged to deep breathe and cough, while splinting right side, but pt unable to produce an effective cough, citing pain. Using IS with prompting. Ice pack applied and medicated with oxycodone. SpO2 noted to gradually decrease reaching 81-82%. Increased oxygen to 13L and RT notified. MD at bedside during these desaturations, pt encouraged to deep breathe through nose and CXR ordered. RT at bedside and NT suctioned pt, large amount of thick/creamy, mckeon/escoto secretions resulted (see RT charting) and sent to culture per MD order. SpO2 immediately improved to 95%, upper airway noticeably clearer. Oxygen decreased by RT and pt now at 10L HFNC, SpO2 93%, resting comfortably in bed.
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
--- NOTE | 2020-11-06 12:45 | OT.IP.EVAL ---
Current Diagnoses Pneumonia, unspecified organism (11/05/20) Multiple fractures of ribs, right side, initial encounter for closed fracture (11/05/20) Past Medical History (Last Reviewed 11/06/20 @ 12:31 by Renetta Luna MD) Hypertension Multiple fractures of ribs of left side Polyarthritis Surgical History (Last Reviewed 11/06/20 @ 12:31 by Renetta Luna MD) History of jeremiah hole surgery Occupational Therapy Inpatient Evaluation/Re-Eval M1 PT/OT-IP Prior Functional Status Start: 11/06/20 13:09 Freq: NEEDED Status: Active Protocol: Document 11/06/20 13:10 CGR (Rec: 11/06/20 13:19 CGR [id number]) Medical Review Prior Functional Status Medical History Reviewed Yes Communication Pt is an effective verbal communicator Mobility and Gait Pt was IND in all mobility at baseline. Activities of Daily Living and IADL's Pt was IND in all ADLs at baseline. Social History Household Members none Living Arrangements Apartment/Condo Number of Floors (Floors) One Floor Number of Stairs To Enter/Railing? no steps Home Environment Standard Height Toilet,Walk in Shower Employment Status Retired Additional Social History Comment Pt does not drive and lives in a converted motel to apts. M2 OT-IP Current Condition Start: 11/06/20 13:09 Freq: Status: Active Protocol: Document 11/06/20 13:10 CGR (Rec: 11/06/20 13:19 CGR [id number]) Occupational Therapy Current Condition Current Condition Evaluation Date 11/06/20 Treatment Diagnosis R rib fx with coffee ground emesis, 10L O2 high flow at time of eval Diagnosis Onset Date 11/05/20 M3 OT- IP Subjective and Pain Start: 11/06/20 13:09 Freq: Status: Active Protocol: Document 11/06/20 13:10 CGR (Rec: 11/06/20 13:19 CGR [id number]) OT- Subjective Occupational Therapy Visit Type Type Initial Evaluation Visit Start Time 12:27 Visit Stop Time 12:45 Total Visit Minutes 18 OT Pain Assessment Pain When Pain Assessed At Rest Pain Present Pain Present Pain Reported Location right post chest Intensity 5 Scale Used Numeric (0 - 10) M4 OT- IP ADL's Start: 11/06/20 13:09 Freq: Status: Active Protocol: Document 11/06/20 13:10 CGR (Rec: 11/06/20 13:19 CGR [id number]) OT KQJ-Tylp-Neebuvk General Evaluation Self-Feeding Ability Independent OT ADL-Grooming Comments OT Grooming Comments Pt declined to participate OT ADL-Oral Care Comments Oral Care Comments Pt declined stating that he has no teeth OT ADL-Dressing General Eval Lower Body Dressing Ability Total Assistance Areas Needing Assistance Socks OT ADL-Toileting Comments OT Toileting Comments Not performed, pt declined need OT ADL-Bathing Comments OT Bathing Comments Not performed M5 OT- IP IADL's Start: 11/06/20 13:09 Freq: Status: Active Protocol: Document 11/06/20 13:10 CGR (Rec: 11/06/20 13:19 CGR [id number]) OT-Instrumental Activities of Daily Living Deficits IADL Deficits Identified No Deficits Home Safety Awareness Awareness of Need for Assistance at Home Good Awareness Ability to Problem Solve Emergency Able to Problem Solve Situations Medication Management Medication Management No Deficits Identified Money Management Money Management No Deficits Identified Meal Preparation Meal Preparation Comments Concerns regarding pt's ability to perform at this time Medical Officer Medical Officer Comments Concerns regarding pt's ability to perform at this time Driving Driving Comments Pt does not drive at baseline M6 OT- IP Functional Cognition Start: 11/06/20 13:09 Freq: Status: Active Protocol: Document 11/06/20 13:10 CGR (Rec: 11/06/20 13:19 CGR [id number]) Cognitive Factors Limiting Selfcare Function Cognitive Ability Level of Alertness Alert Patient Orientation Name,Age,Birthday,Month,Date, Year,Day of Week,Place, Situation Attention Span Ability Capable of Focused Attention, Capable of Sustained Attention Ability to Follow Commands Able to Follow One Step Commands OT- Vision and Hearing OT- Hearing Assessment OT- Hearing Assessment WFL OT- Vision Assessment Visual Acuity Glasses All The Time Visual Attentiveness WFL Occular Pursuits WFL M7 OT- IP Mobility and Balance Start: 11/06/20 13:09 Freq: Status: Active Protocol: Document 11/06/20 13:10 CGR (Rec: 11/06/20 13:19 CGR [id number]) OT- Bed Mobility Assessment Supine to Sit Supine to Sit Assist Minimal Assistance,Head of Bed Elevated,Bedrails Scooting Scooting to Edge of Bed Standby Assistance,Head of Bed Elevated,Bedrails OT-Transfer Assessment Sit to and From Stand Sit to and from Stand Minimal Assistance Transfers Transfer Ability Minimal Assistance Technique Transfer Destination Bed,Chair Transfer Technique Stand Step Pivot Devices Transfer Assistive Devices Gait Belt Comments Mobility Comments Pt is unsteady on his feet for short distance from bed to chair. OT- Gait Assessment Comments Gait Ability Comments not performed OT- Balance Assessment Sitting Balance and Reactions Static Sitting Balance Ability Fair Dynamic Sitting Balance Ability Fair M8 OT- IP Objective Assessments Start: 11/06/20 13:09 Freq: Status: Active Protocol: Document 11/06/20 13:10 CGR (Rec: 11/06/20 13:19 CGR [id number]) OT Gross Range of Motion Upper Extremity Range of Motion Assessment Right Impaired ROM Impairments R impaired d/t pain OT Strength Comments Strength Comments R arm not tested, LUE grossly 4+/5 OT- Coordination Assessment Upper Extremity Finger to Nose Test Within Functional Limits Finger Tapping Test Within Functional Limits OT-Muscle Tone Assessment Muscle Tone WNL Yes OT Sensation Assessment Edema Edema Absent M9 OT- IP Assessment and Plan Start: 11/06/20 13:09 Freq: Status: Active Protocol: Document 11/06/20 13:10 CGR (Rec: 11/06/20 13:19 CGR [id number]) OT Summary Assessment and Plan Potential Rehabilitation Potential Good Analytic Complexity at Evaluation Low Summary OT Impairments Pain,Balance,Functional Mobility,Grooming,Dressing, Toileting,Bathing,Toilet Transfers,Shower Transfers, Activity Tolerance Progress Towards Goals Slow Progress due to Pain Assessment Summary Pt presents as a low complexity evaluation s/p admit for R rib fx. Pt has needed high flow o2 and has complaints of pain with movement. Pt will benefit from continued OT services. Of note, pt needed assist with bed mobility with HOB up. Pt is unlikely able to tolerate bed mobility without assist. Goals Self-Feeding Goal Independent Grooming Goal Independent Dressing Goal Independent Toileting Goal Independent Bathing Goal Independent Toilet Transfer Goal Independent Shower Transfer Goal Independent Days to Meet Goals 10 Frequency of Treatment Frequency Of Treatment Once a Day Treatment Plan OT Treatment Plan ADL Training,Functional Mobility,Patient/Family Education,Discharge Planning Other Treatment Recommendations and Next shower if able Treatment Focus Discharge Recommendations OT Discharge Recommendations Home vs SNF Other Discharge Recommendations Home with assist vs SNF given pt's current abilities. Pt states he feels significantly better today and hopes to feel much better again tomorrow with the hopes of discharging home. Home Equipment Needs TBD Transportation Needs at Discharge Private Vehicle
--- NOTE | 2020-11-06 13:35 | PT.IIE ---
Current Diagnoses Pneumonia, unspecified organism (11/05/20) Multiple fractures of ribs, right side, initial encounter for closed fracture (11/05/20) Surgical History (Last Reviewed 11/06/20 @ 12:31 by Renetta Luna MD) History of jeremiah hole surgery Medical History (Last Reviewed 11/06/20 @ 12:31 by Renetta Luna MD) Hypertension Multiple fractures of ribs of left side Polyarthritis Physical Therapy Inpatient Evaluation/Re-Eval M1 PT/OT-IP Prior Functional Status Start: 11/06/20 13:09 Freq: NEEDED Status: Active Protocol: Document 11/06/20 13:35 AB (Rec: 11/06/20 14:24 AB [email or web address]) Medical Review Prior Functional Status Medical History Reviewed Yes Communication able to make needs known Mobility and Gait pt stated that he is independent with all mobilities and ambulation without AD Activities of Daily Living and IADL's per OT note: Pt was IND in all ADLs at baseline. Social History Household Members none Living Arrangements Apartment/Condo Number of Floors (Floors) One Floor Number of Stairs To Enter/Railing? no steps Home Environment Standard Height Toilet,Walk in Shower Home Equipment Grab Bars Near Toilet,Grab Bars In Shower Employment Status Retired Additional Social History Comment Pt does not drive and lives in a converted motel to apts. M2 PT-IP Current Condition Start: 11/06/20 14:12 Freq: NEEDED Status: Active Protocol: Document 11/06/20 13:35 AB (Rec: 11/06/20 14:24 AB [email or web address]) Physical Therapy Current Condition Current Condition Evaluation Date 11/06/20 Treatment Diagnosis PNA; R closed rib fx 3-9; difficulty in walking Onset Date 11/05/20 Precautions Other Precautions falls; O2 sat M3 PT-IP Subjective Start: 11/06/20 14:12 Freq: NEEDED Status: Active Protocol: Document 11/06/20 13:35 AB (Rec: 11/06/20 14:24 AB [email or web address]) Subjective Physical Therapy Visit Type Type Initial Evaluation Visit Start Time 13:35 Visit Stop Time 14:05 Total Visit Minutes 30 Number of DRY DRUG WORKER Visits 0 Physical Therapy Visit Comments Patient Comments pt is agreeable to do PT Therapy Pain Assessment Pain When Pain Assessed At Rest Pain Present Pain Present Pain Reported Location Right Ribs Scale Used pain scale not stated Pain Management Techniques Distraction,Modification of Treatment,Re-positioning, Timing of Activity with Medications M4 PT-IP Mobility and Gait Start: 11/06/20 14:12 Freq: NEEDED Status: Active Protocol: Document 11/06/20 13:35 AB (Rec: 11/06/20 14:24 AB [email or web address]) PT-Bed Mobility Assessment Sit to Supine Sit to Supine Moderate Assistance,Maximum Assistance,1 Person Assistance ,Head of Bed Elevated,Bedrails PT-Transfer Assessment Sit to and From Stand Sit to and from Stand Moderate Assistance,1 Person Assistance,Use of Upper Extremities Equipment Transfer Assistive Device Gait Belt,Front Wheeled Walker Orthotic/Prosthetic Devices or Brace: No Transfers Transfer Destination Bed Transfer Technique ambulated using FWW Transfer Ability Level of Assist Moderate Assistance,1 Person Assistance,Use of Upper Extremities Comments Mobility Comments pt sitting on chair and agreeable to do PT. requesting to go back to bed. completed sit to stand mod A and cues. ambulated to the bed using FWW mod A and cues. presents with usteady gait with decrease step width;(+) SOB. required mod A and cues for controlled descent to EOB. completed bed mobility sit to supine mod. pt requested for HOB to be elevated due to rib pain. postioned pt in bed . call light and table placed within reach. Pt is on high flow O2 Gait Assessment Gait Gait Assistance Required: Moderate Assistance,1 Person Assist Distance (Feet) 12 Able to Maintain Weight Bearing Status Yes During Gait Assistive Devices Assistive Device Gait Belt,Front Wheeled Walker Orthotic/Prosthetic Devices or Brace: No Gait Deviations General Gait Pattern Ataxic,Decreased Stride Length ,Decreased Feet Clearance,Step -to Gait Factors Limiting Gait Function Factors Limiting Gait Function Decreased Activity Tolerance, Decreased Strength,Limited Range of Motion,Pain,Poor Balance,Poor Safety Awareness, Respiratory Distress Comments Gait Comments pls refer to mobility section for details PT-Balance Assessment Sitting Balance and Reactions Static Sitting Balance Ability Good Dynamic Sitting Balance Ability Good Standing Balance and Reactions Static Standing Balance Ability Fair Dynamic Standing Balance Ability Poor Device Used FWW M5 PT-IP Objective Assessments Start: 11/06/20 14:12 Freq: NEEDED Status: Active Protocol: Document 11/06/20 13:35 AB (Rec: 11/06/20 14:24 AB [email or web address]) Orientation Orientation/Cognition Level of Alertness Alert Orientation Name,Place,Situation Safety Awareness Decreased Safety Awareness Memory Description No Deficits Noted Gross Range of Motion Lower Extremity ROM Assessment Within Functional Limits Strength Lower Extremity Strength Assessment Within Functional Limits Coordination Assessment Gross Coordination Gross Coordination WNL Muscle Tone Muscle Tone WNL Yes M6 PT-IP Treatment Start: 11/06/20 14:12 Freq: NEEDED Status: Active Protocol: Document 11/06/20 13:35 AB (Rec: 11/06/20 14:24 AB [email or web address]) Physical Therapy Treatment Education Education Provided Safety M7 PT-IP Assessment and Plan Start: 11/06/20 14:12 Freq: NEEDED Status: Active Protocol: Document 11/06/20 13:35 AB (Rec: 11/06/20 14:24 AB [email or web address]) PT Summary Assessment and Plan Potential Rehabilitation Potential Good Status of Condition at Evaluation Evolving Summary Impairments Pain,ROM,Strength,Balance, Coordination,Sensation,Tone, Cognition,Bed Mobility, Transfers,Gait,Activity Tolerance Assessment Summary pt requiring mod A with mobility and ambulation using FWW and has decrease activity tolerance. Pt currently is on high flow O2 . pt lives alone and can have friend to assist him when needed but cannot stay with him to assist . pt will require SNF rehab at this time. will continue to assess progress. Goals Bed Mobility Goal Standby Assistance Transfer Goal Standby Assistance,Front Wheeled Walker Gait Goal Standby Assistance,Front Wheel Walker Gait Distance 100 Other Goals improve bed mobility, transfers to modified I and ambulation using FWW/without AD 150 ft SBA Days to Meet Goals 10 Frequency of Treatment Frequency Of Treatment Once a Day Treatment Plan Physical Therapy Treatment Plan Bed Mobility Training,Transfer Training,Gait Training, Therapeutic Exercise,Balance Retraining,Discharge Planning, Neuromuscular Re-ed, Coordination Retraining Precautions Other Precautions O2 Recommendations To Nursing Amount of Assist Needed 1 Person Assist Discharge Recommendations PT Discharge Recommendations SNF Rehab Transportation Needs at Discharge Wheelchair/Cabulance
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
[2020-11-06] MEDS: GABAPENTIN 300 MG CAPSULE PO (20:24)
[2020-11-06] MEDS: LIDOCAINE PATCH 1 EACH ADH..PATCH TOP (20:24)
--- NOTE | 2020-11-06 22:26 | PC.NURSE ---
Evening shift note: A/O x4, pt sitting up in bed currently on 3L HFNC SpO2 between 90-92%, Lung sounds coarse with rhonci inspiratory and expiratory, uses IS when prompted, but shallow breathing otherwise due to ribs, states pain is 4/10 and denies the need for pain medications, torres placed for urine retention r/t opiate pain medications. Bed low and locked, call light within reach, able to make needs known, will continue to monitor.
[2020-11-07] VITALS (13 sets, daily range): BP systolic 116–172; BP diastolic 58–85; PULSE 79–89; RESP 14–21; TEMP 30–37.4; O2SAT 87–97
[2020-11-07] MEDS: PIPERACILLIN-TAZO 3.375 GM/50 ML FROZ.PIGGY IV ×3 (00:01→16:03)
[2020-11-07] MEDS: OXYCODONE IR 10 MG TABLET PO (00:09)
[2020-11-07] MEDS: ALBUTEROL/IPRATROPIUM 3 ML AMPUL INH ×4 (01:38→19:44)
[2020-11-07 05:36] LABS: Add Manual Diff / Slide Review NO; Basophils Absolute Auto 100 /uL (0-100); Eosinophils Absolute Auto 300 /uL (0-450); Eosinophils Percent Auto 3.3 % (2-4); Hematocrit 26.6 % (41-53); Lymphocytes Absolute Auto 1500 /uL (1100-4500); Lymphocytes Percent Auto 15.1 % (25-40); Mean Corpuscular HGB Conc 33.9 % (30-36); Mean Corpuscular Hemoglobin 31.9 PG (26-34); Mean Corpuscular Volume 94.3 fL (80-100); Monocytes Absolute Auto 1200 /uL (0-900); Monocytes Percent Auto 12.1 % (3-14); Neutrophils Absolute Auto 6600 /uL (1500-7000); Neutrophils Percent Auto 68.5 % (50-75); Platelet Count 212 X10^3/uL (150-400); Red Blood Cell Count 2.82 X10^6/uL (4.5-5.9); White Blood Cell Count 9.7 X10^3/uL (4.5-11.0)
[2020-11-07 05:40] LABS: BUN Creatinine Ratio 12.5 (6-22); Blood Urea Nitrogen 14 mg/dL (9-20); Carbon Dioxide 25 mmol/L (22-32); Chloride 106 mmol/L (98-107); Estimated Glomerular Filt Rate > 60.0 mL/min (>60); Glucose 115 mg/dL (80-110); HEMOLYSIS < 15 (0-50); Potassium 3.6 mmol/L (3.4-5.1); Sodium 135 mmol/L (137-145)
[2020-11-07 05:42] LABS: Hemoglobin A1C% w Est Avg Glu 5.8 % (4.0-6.0)
--- NOTE | 2020-11-07 08:32 | DI.RAD.S_ITS ---
PROCEDURE: XR CHEST 1V INDICATIONS: increased pain, subjective dyspnea TECHNIQUE: One view of the chest was acquired. COMPARISON: [facility], CT, CT ANGIO CHEST PE PROTOCOL, 11/06/2020, 0:01. [facility], CR, XR CHEST 1V, 11/05/2020, 23:13. [facility], CT, CT CHEST ABD PEL W CON, 11/05/2020, 10:52. [facility], CR, XR CHEST 1V, 11/06/2020, 9:36. FINDINGS: Surgical changes and devices: None. Lungs and pleura: Low lung volumes are noted. This causes a crowded appearance to the lung markings and limits evaluation. Mild, streaky opacities are seen at the lung bases. Mediastinum: Mediastinal contours appear normal. Heart size is normal. Atherosclerotic calcification of the aortic arch is noted. Bones and chest wall: No suspicious bony lesions. Several right-sided rib fractures are again seen. Remote left-sided rib fractures can be seen. Remote distal left clavicle fracture. Age-appropriate bony degenerative changes are seen. Overlying soft tissues appear unremarkable. IMPRESSION: Stable study demonstrating trace pleural effusions and mild atelectasis. Right-sided rib fractures are again seen, without a pneumothorax. Remote left right-sided rib fractures and left distal clavicle fracture. Dictated by: Oskar Belle M.D. on 11/07/2020 at 7:49 Approved by: Oskar Belle M.D. on 11/07/2020 at 7:51
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
[2020-11-07] MEDS: PANTOPRAZOLE DR 40 MG TABLET PO (08:56)
[2020-11-07] MEDS: GABAPENTIN 300 MG CAPSULE PO ×2 (08:57→20:13)
[2020-11-07] MEDS: DOCUSATE 100 MG CAPSULE PO ×2 (08:57→20:13)
[2020-11-07] MEDS: ENOXAPARIN 40 MG/0.4 ML SYRINGE SUBCUT (08:57)
[2020-11-07] MEDS: AMLODIPINE 5 MG TABLET 10 MG PO (08:57)
[2020-11-07] MEDS: TAMSULOSIN 0.4 MG CAPSULE PO (08:58)
[2020-11-07] MEDS: SODIUM CHLORIDE 0.9% FLUSH 10 ML IV ×2 (08:58→20:20)
[2020-11-07] MEDS: HYDROMORPHONE 4 MG TABLET PO ×2 (08:58→20:13)
[2020-11-07] MEDS: polyethylene glycoL 3350 17 GM POWD.PACK PO (08:58)
[2020-11-07] MEDS: LOSARTAN 50 MG TABLET PO (08:58)
--- NOTE | 2020-11-07 09:53 | PC.NURSE ---
Addendum entered by Princess Nguyen R.N. 11/07/20 13:02: Patient reports minimal pain when holding still, HR at 79, 93% on 3L. With movement patient experiences sharp pain, discussed pain medication options. Patient declined both Dilaudid or Tylenol. Patient has been using the IS minimally, encouraged patient to consider medication if he feels an increased WOB or if his mobility, use of IS, becomes limited d/t pain. Patient verbalized understanding. Denies further needs. Original Note: Patient A/O x 4, up to chair with 1 p assist. Patient on 3L, 93%, denies feeling SOB. Noted LLL course crackles, R lung clear, diminished. Denies cough. Splinting with pillow. Reports right rib pain with deep breathing and movement, 01/08. PRN Dilaudid administered. IV ABX hung, R AC IV patent, Left FA IV saline locked. Lidocaine patch removed from R ribs per AUG. BT active x 4, abdomen mildly distended, denies pain, last BM 11/04. Barber patent, draining clear yellow urine. Patient repositioned for comfort. Call light in reach
--- NOTE | 2020-11-07 11:07 | P.PN_ITS ---
Subjective Subjective Date Patient Seen: 11/07/20 Time Patient Seen: 09:30 Interval history: Pt denies that his rib fracture pain is limiting his inspiration. Exam Vital Signs (past 8 hours): - 11/07/20 04:49 11/07/20 07:15 11/07/20 08:00 Temperature 97.6 F 97.8 F Pulse Rate 83 89 83 Respiratory Rate 18 18 14 Blood Pressure 142/68 H 155/69 H Pulse Oximetry 94 88 L 92 11/07/20 08:58 Temperature Pulse Rate 80 Respiratory Rate Blood Pressure 155/69 H Pulse Oximetry Oxygen Delivery Method Nasal Cannula Oxygen Flow Rate 3 Narrative Exam Narrative: GENERAL: Alert,comfortable Appears stated age. Answers questions promptly and appropriately. Vital signs noted. HENT: Normocephalic, atraumatic. Hearing intact. EYES: Conjunctiva pink, sclera white, no periorbital swelling. CARDIOVASCULAR: Regular rate. RESPIRATORY: Non-tachypneic, breathing comfortably on 3L NC O2. speaking on the phone without SOB MUSCULOSKELETAL: Equal tone and mass bilaterally. SNEURO: Alert and Oriented X 3. No gross sensory deficits, or cognitive issues. PSYCH: Appropriate affect and mood. Objective Labs Result Diagrams: 11/07/20 04:45 11/07/20 04:45 Labs: Laboratory Results - last 24 hr 11/07/20 11/07/20 11/07/20 04:45 04:45 04:45 WBC 9.7 RBC 2.82 L Hgb 9.0 L Hct 26.6 L MCV 94.3 MCH 31.9 MCHC 33.9 RDW 15.0 H Plt Count 212 Neut % (Auto) 68.5 Lymph % (Auto) 15.1 L [place] % (Auto) 12.1 Eos % (Auto) 3.3 Baso % (Auto) 1.0 Neut # (Auto) 6600 Lymph # (Auto) 1500 [place] # (Auto) 1200 H Eos # (Auto) 300 Baso # (Auto) 100 Sodium 135 L Potassium 3.6 Chloride 106 Carbon Dioxide 25 BUN 14 Creatinine 1.12 Estimated GFR > 60.0 BUN/Creatinine Ratio 12.5 Glucose 115 H Hemoglobin A1c 5.8 Calcium 8.0 L Magnesium 2.0 PFSH Medical History Hypertension Multiple fractures of ribs of left side Polyarthritis Surgical History History of jeremiah hole surgery Family History Father Cancer Social History household members: none Smoking Status: Former smoker alcohol intake: current Assessment & Plan Assessment and plan (1) Pneumonia: Qualifiers: Laterality: unspecified laterality Lung location: lower lobe of lung Pneumonia type: due to unspecified organism Qualified Code(s): J18.9 - Pneumo ted, unspecified organism Status: Acute (2) Closed rib fracture: Qualifiers: Encounter type: initial encounter Laterality: right Rib fracture type: multiple ribs Qualified Code(s): S22.41XA - Multiple fractures of ribs, right side, initial encounter for closed fracture Status: Acute Assessment & Plan narrative: Pt admitted two days ago with desat and PNA after fall and rib fractures. He denies respirations are limited by pain. Improving with NT suctioning. Plan: continue pulmonary toilet ambulate as tolerated pain control with rib fracture regimen If decompensation occurs, pt may need anesthesia consult for epidural COVID-19 COVID-19 status: Negative Result date/Date tested (Pos, Neg/Pending): 11/05/20 Time Spent With Patient Time with patient: 15-24 minutes Quality VTE Deep Vein Thrombosis/Pulmonary Embolism Present on Admission: No
--- NOTE | 2020-11-07 14:32 | CM.DPC ---
DCP HH vs SNF: Per MD, pt continues to improve and down from 10L to 3L O2 and will remain on torres cath today with possible removal tomorrow to see how pt tolerates independent voiding. Still having some sats drop with pain and exertions. Not stable for d/c yet today. Per PT/OT initial eval yesterday 11/06/20, recommending home with assist and HH vs SNF pending progress. PT has not been able to work with pt yet today. SW met bedside with pt and explained role again and provided the SNF/HH Choice List with highlighted [facility] SNF's ([facility], [facility], [facility]) and discussed SNF and HH services and frequency. Pt states he's not sure yet if he will be able to safely d/c home but he also does not like the idea of SNF at a [facility] due to friends having to go there in the past and never coming back out again. Pt states his preference is home if at all possible and is willing to begin calling friends to determine who can provide assist at d/c and he would be agreeable to HH but currently no preference of agency. Pt aware that his d/c plan will be based on his progress and independence with ADL's and PT. Plan: SW to follow for further PT today towards determining SNF vs HH at d/c. Pt's [employer] MCR determines which HH and SNF's he could utilize and if SNF then [employer] auth would need to be initiated tomorrow (Sun) morning. SANYA Claros
--- NOTE | 2020-11-07 15:46 | PT.IPTN ---
Current Diagnoses Pneumonia, unspecified organism (11/05/20) Multiple fractures of ribs, right side, initial encounter for closed fracture (11/05/20) Physical Therapy Treatment Note M2 PT-IP Current Condition Start: 11/06/20 14:12 Freq: NEEDED Status: Active Protocol: Document 11/06/20 13:35 AB (Rec: 11/06/20 14:24 AB [email or web address]) Physical Therapy Current Condition Current Condition Evaluation Date 11/06/20 Treatment Diagnosis PNA; R closed rib fx 3-9; difficulty in walking Onset Date 11/05/20 Precautions Other Precautions falls; O2 sat M3 PT-IP Subjective Start: 11/06/20 14:12 Freq: NEEDED Status: Active Protocol: Document 11/07/20 14:49 LJ (Rec: 11/07/20 15:46 LJ [id number]) Subjective Physical Therapy Visit Type Type Treatment Note Visit Start Time 14:49 Visit Stop Time 15:24 Total Visit Minutes 35 Number of INFORMATION SYSTEMS AUDIT MANAGER Visits 1 Physical Therapy Visit Comments Patient Comments pt is agreeable to do PT Therapy Pain Assessment Pain When Pain Assessed At Rest Pain Present Pain Present Pain Reported M4 PT-IP Mobility and Gait Start: 11/06/20 14:12 Freq: NEEDED Status: Active Protocol: Document 11/07/20 14:49 LJ (Rec: 11/07/20 15:46 LJ [id number]) PT-Bed Mobility Assessment Rolling Type of Rolling Log Rolling,Roll to Right Level of Assist Minimal Assistance Sit to Supine Sit to Supine Minimal Assistance,1 Person Assistance,Head of Bed Elevated Scooting Scooting to Edge of Bed Standby Assistance Scooting Up and Down in Bed Standby Assistance PT-Transfer Assessment Sit to and From Stand Sit to and from Stand Minimal Assistance,1 Person Assistance,Use of Upper Extremities Equipment Transfer Assistive Device Gait Belt,Front Wheeled Walker Orthotic/Prosthetic Devices or Brace: No Transfers Transfer Destination Bed Transfer Technique ambulated using FWW Transfer Ability Level of Assist Minimal Assistance,1 Person Assistance,Use of Upper Extremities Comments Mobility Comments Pt sitting in chair upon arrival agreeable to do PT. With gait belt around hips pt completed sit>stand Sang using pushoff from chair. Hastily grabbed the FWW for stability due to pain while still in flexed position. Able to straighten up and take steps forward slowly with assist for multiple lines and IV. Pt ambulated around the bed ~10' and requested to return to other side of bed to lay down. Pt ambulated to other side of bed CGA and assist with lines and stand step pivot to side of bed. Pt requiring assist with LEs to get into bed with head of bed elevated. Completed scooting and bridging bed mobility to position self in bed with SBA. Pt uses pillow on right side for support. All lines were straightened out and call light and needs within reach. Gait Assessment Gait Gait Assistance Required: Minimum Assistance,Moderate Assistance,1 Person Assist Distance (Feet) 12 Able to Maintain Weight Bearing Status Yes During Gait Assistive Devices Assistive Device Gait Belt,Front Wheeled Walker Orthotic/Prosthetic Devices or Brace: No Gait Deviations General Gait Pattern Ataxic,Decreased Stride Length ,Decreased Feet Clearance,Step -to Gait Factors Limiting Gait Function Factors Limiting Gait Function Decreased Activity Tolerance, Decreased Strength,Limited Range of Motion,Pain,Poor Balance,Poor Safety Awareness, Respiratory Distress Comments Gait Comments pls refer to mobility section for details M5 PT-IP Objective Assessments Start: 11/06/20 14:12 Freq: NEEDED Status: Active Protocol: Document 11/06/20 13:35 AB (Rec: 11/06/20 14:24 AB [email or web address]) Orientation Orientation/Cognition Level of Alertness Alert Orientation Name,Place,Situation Safety Awareness Decreased Safety Awareness Memory Description No Deficits Noted Gross Range of Motion Lower Extremity ROM Assessment Within Functional Limits Strength Lower Extremity Strength Assessment Within Functional Limits Coordination Assessment Gross Coordination Gross Coordination WNL Muscle Tone Muscle Tone WNL Yes M6 PT-IP Treatment Start: 11/06/20 14:12 Freq: NEEDED Status: Active Protocol: Document 11/07/20 14:49 VINI (Rec: 11/07/20 15:46 [id number]) Physical Therapy Treatment Education Education Provided Safety Other Treatments Other Treatment Performed abdominal draw in maneuver for stabilizing trunk prior to movement. M7 PT-IP Assessment and Plan Start: 11/06/20 14:12 Freq: NEEDED Status: Active Protocol: Document 11/07/20 14:49 VINI (Rec: 11/07/20 15:46 LJ [id number]) PT Summary Assessment and Plan Potential Rehabilitation Potential Good Status of Condition at Evaluation Evolving Summary Impairments Pain,ROM,Strength,Balance, Coordination,Sensation,Tone, Cognition,Bed Mobility, Transfers,Gait,Activity Tolerance Assessment Summary Pt requiring ModA with lines and equipment during ambulation however he has not demonstrated LOB or instability in the short amount of ambulation he has been able to do in the room. will most likely improve when fewer lines are required for his medical situation. At this tiime, pt will require SNF rehab for healing and regaining strength and modified independence Goals Bed Mobility Goal Standby Assistance Transfer Goal Standby Assistance,Front Wheeled Walker Gait Goal Standby Assistance,Front Wheel Walker Gait Distance 100 Other Goals improve bed mobility, transfers to [facility] and ambulation using FWW/without AD 150 ft SBA Days to Meet Goals 10 Frequency of Treatment Frequency Of Treatment Once a Day Treatment Plan Physical Therapy Treatment Plan Bed Mobility Training,Transfer Training,Gait Training, Therapeutic Exercise,Balance Retraining,Discharge Planning, Neuromuscular Re-ed, Coordination Retraining Precautions Other Precautions O2 Recommendations To Nursing Amount of Assist Needed 1 Person Assist Discharge Recommendations PT Discharge Recommendations SNF Rehab
[2020-11-07] MEDS: ACETAMINOPHEN 325 MG TABLET 650 MG PO (16:10)
[2020-11-07] MEDS: LIDOCAINE PATCH 1 EACH ADH..PATCH TOP (20:14)
[2020-11-07] MEDS: MORPHINE 2 MG/ML INJ IV (23:54)
[2020-11-08] VITALS (15 sets, daily range): BP systolic 130–176; BP diastolic 63–89; PULSE 70–84; RESP 16–22; TEMP 36.3–37.2; O2SAT 4–97
[2020-11-08] MEDS: PIPERACILLIN-TAZO 3.375 GM/50 ML FROZ.PIGGY IV ×3 (00:33→18:37)
--- NOTE | 2020-11-08 01:48 | PC.NURSE ---
patient is alert and oriented. Breath sounds coarse but CTA. On oxygen per [facility]NC at 4L/min with sat of 97%; on continuous oximetry. Respirations are shallow and has increased pain with movement, cough or deep breathing. HRR w/telemetry reading of SR. BP elevated at 172/77 but patient having 5/10 pain at the time; medicated with IV Morphine. Denies nausea. BT present and is passing flatus but has not had a BM since 11/04; is receiving Colace and Miralax. Indwelling catheter is patent; urine is clear yellow. Is able to turn with assistance. Gait not assessed at this time but patient reports getting up to chair with walker and 1 assist and states he feels weak in doing so. Refusing SCD's so reminded to ankle wave and patient verbalizes understanding. Fall risk score is high and bed alarm is activated.
[2020-11-08] MEDS: ALBUTEROL/IPRATROPIUM 3 ML AMPUL INH ×4 (01:59→20:58)
[2020-11-08] MEDS: MORPHINE 2 MG/ML INJ IV (04:39)
[2020-11-08] MEDS: SODIUM CHLORIDE 0.9% FLUSH 10 ML IV ×3 (04:39→22:17)
[2020-11-08 05:39] LABS: Add Manual Diff / Slide Review NO; Basophils Absolute Auto 100 /uL (0-100); Basophils Percent Auto 1.2 % (0-2); Eosinophils Absolute Auto 400 /uL (0-450); Eosinophils Percent Auto 4.3 % (2-4); Hematocrit 28.4 % (41-53); Hemoglobin 9.7 g/dL (13.5-17.5); Lymphocytes Absolute Auto 1000 /uL (1100-4500); Lymphocytes Percent Auto 10.2 % (25-40); Mean Corpuscular HGB Conc 34.2 % (30-36); Mean Corpuscular Hemoglobin 31.9 PG (26-34); Mean Corpuscular Volume 93.2 fL (80-100); Monocytes Absolute Auto 1100 /uL (0-900); Monocytes Percent Auto 11.4 % (3-14); Neutrophils Absolute Auto 7300 /uL (1500-7000); Neutrophils Percent Auto 72.9 % (50-75); Platelet Count 239 X10^3/uL (150-400); Red Blood Cell Count 3.04 X10^6/uL (4.5-5.9); Red Cell Distribution Width 14.7 % (11.6-14.8); White Blood Cell Count 10.1 X10^3/uL (4.5-11.0)
[2020-11-08 05:43] LABS: BUN Creatinine Ratio 11.6 (6-22); Blood Urea Nitrogen 11 mg/dL (9-20); Calcium 8.5 mg/dL (8.4-10.2); Carbon Dioxide 25 mmol/L (22-32); Chloride 103 mmol/L (98-107); Estimated Glomerular Filt Rate > 60.0 mL/min (>60); Glucose 119 mg/dL (80-110); HEMOLYSIS < 15 (0-50); Magnesium 1.8 mg/dL (1.6-2.3); Potassium 3.5 mmol/L (3.4-5.1); Sodium 135 mmol/L (137-145)
[2020-11-08] MEDS: PANTOPRAZOLE DR 40 MG TABLET PO (06:30)
--- NOTE | 2020-11-08 08:08 | PT.IPTN ---
Current Diagnoses Pneumonia, unspecified organism (11/05/20) Multiple fractures of ribs, right side, initial encounter for closed fracture (11/05/20) Physical Therapy Treatment Note M2 PT-IP Current Condition Start: 11/06/20 14:12 Freq: NEEDED Status: Active Protocol: Document 11/06/20 13:35 AB (Rec: 11/06/20 14:24 AB [email or web address]) Physical Therapy Current Condition Current Condition Evaluation Date 11/06/20 Treatment Diagnosis PNA; R closed rib fx 3-9; difficulty in walking Onset Date 11/05/20 Precautions Other Precautions falls; O2 sat M3 PT-IP Subjective Start: 11/06/20 14:12 Freq: NEEDED Status: Active Protocol: Document 11/08/20 07:58 [facility] (Rec: 11/08/20 08:08 [facility] [id number]) Subjective Physical Therapy Visit Type Type Treatment Note Visit Start Time 07:34 Visit Stop Time 07:53 Total Visit Minutes 19 Number of COMPOUNDING ASSISTANT Visits 0 Physical Therapy Visit Comments Patient Comments Pt notes he is hoping to go home M4 PT-IP Mobility and Gait Start: 11/06/20 14:12 Freq: NEEDED Status: Active Protocol: Document 11/08/20 07:58 [facility] (Rec: 11/08/20 08:08 [facility] [id number]) PT-Bed Mobility Assessment Rolling Type of Rolling Log Rolling,Roll to Left Level of Assist Standby Assistance Supine to Sit Supine to Sit Minimal Assistance,Bedrails Scooting Scooting to Edge of Bed Standby Assistance Scooting Up and Down in Bed Standby Assistance PT-Transfer Assessment Sit to and From Stand Sit to and from Stand Contact Guard Assistance,Use of Upper Extremities Equipment Transfer Assistive Device Gait Belt,Front Wheeled Walker Orthotic/Prosthetic Devices or Brace: No Transfers Transfer Destination Chair Transfer Technique ambulated using FWW Transfer Ability Level of Assist Contact Guard Assistance,Use of Upper Extremities Comments Mobility Comments Pt did supine to sit w/log roll technique w/cueing for roll to L side prior to sequencing LEs out of bed. Pt able to roll to side SBA w/use of rail and then did s/l to sit w/use of rail w/ min A. He scooted to EOB SBA. sit to stand CGA to FWW then pt amb CGA around roomw/FWW w/PT managing cords. He then sat down after walking around the bed and back and to window and back in chair w/SBA. He was left with call light inr each and discussed w/pt importance of getting up to walk. He verbalized understanding. Gait Assessment Gait Gait Assistance Required: Contact Guard Assist Distance (Feet) 25 Able to Maintain Weight Bearing Status Yes During Gait Assistive Devices Assistive Device Gait Belt,Front Wheeled Walker Orthotic/Prosthetic Devices or Brace: No Gait Deviations General Gait Pattern Antalgic,Decreased Stride Length,Decreased Feet Clearance Factors Limiting Gait Function Factors Limiting Gait Function Decreased Activity Tolerance, Decreased Strength,Limited Range of Motion,Pain,Poor Balance,Poor Safety Awareness, Respiratory Distress Comments Gait Comments pls refer to mobility section for details M5 PT-IP Objective Assessments Start: 11/06/20 14:12 Freq: NEEDED Status: Active Protocol: Document 11/06/20 13:35 AB (Rec: 11/06/20 14:24 AB [email or web address]) Orientation Orientation/Cognition Level of Alertness Alert Orientation Name,Place,Situation Safety Awareness Decreased Safety Awareness Memory Description No Deficits Noted Gross Range of Motion Lower Extremity ROM Assessment Within Functional Limits Strength Lower Extremity Strength Assessment Within Functional Limits Coordination Assessment Gross Coordination Gross Coordination WNL Muscle Tone Muscle Tone WNL Yes M6 PT-IP Treatment Start: 11/06/20 14:12 Freq: NEEDED Status: Active Protocol: Document 11/08/20 07:58 [facility] (Rec: 11/08/20 08:08 [facility] [id number]) Physical Therapy Treatment Education Education Provided Safety Other Treatments Other Treatment Performed log roll edu, edu on importance on inc mobility M7 PT-IP Assessment and Plan Start: 11/06/20 14:12 Freq: NEEDED Status: Active Protocol: Document 11/08/20 07:58 [facility] (Rec: 11/08/20 08:08 [facility] [id number]) PT Summary Assessment and Plan Summary Impairments Pain,ROM,Strength,Balance, Coordination,Sensation,Tone, Cognition,Bed Mobility, Transfers,Gait,Activity Tolerance Assessment Summary Pt is slowly improving and is very motivated to return home. If he cont improving over course of hospital stay, pt may be able to return home. He is unable to walk household distances yet and still requires assist along w/use of bed rail to get out of bed which would limit his ability to return home as he has no one living with him that would be able to assist. If over the course of his hospital stay, he cont to improve towards more independence, then he may be safe to return home as he would prefer. At this time, he still does require assist w/O2 cord during gait, assist for bed mobility and is limited to 25 ft prior to feeling fatigue, he would not be safe to return home and may require SNF. O2 saturation did stay 90% or greater during session. Goals Bed Mobility Goal Standby Assistance Transfer Goal Standby Assistance,Front Wheeled Walker Gait Goal Standby Assistance,Front Wheel Walker Gait Distance 100 Other Goals improve bed mobility, transfers to modified I and ambulation using FWW/without AD 150 ft SBA Days to Meet Goals 10 Frequency of Treatment Frequency Of Treatment Once a Day Treatment Plan Physical Therapy Treatment Plan Bed Mobility Training,Transfer Training,Gait Training, Therapeutic Exercise,Balance Retraining,Discharge Planning, Neuromuscular Re-ed, Coordination Retraining Precautions Other Precautions O2 Recommendations To Nursing Amount of Assist Needed 1 Person Assist Discharge Recommendations PT Discharge Recommendations Home with Assistance,Home Health,SNF Rehab Other Discharge Recommendations Pt is slowly improving and is very motivated to return home. If he cont improving over course of hospital stay, pt may be able to return home.
[2020-11-08] MEDS: polyethylene glycoL 3350 17 GM POWD.PACK PO (08:57)
[2020-11-08] MEDS: DOCUSATE 100 MG CAPSULE PO ×2 (08:58→22:15)
[2020-11-08] MEDS: AMLODIPINE 5 MG TABLET 10 MG PO (08:58)
[2020-11-08] MEDS: GABAPENTIN 300 MG CAPSULE PO ×2 (08:58→22:15)
[2020-11-08] MEDS: LOSARTAN 50 MG TABLET PO (08:58)
[2020-11-08] MEDS: ENOXAPARIN 40 MG/0.4 ML SYRINGE SUBCUT (08:58)
[2020-11-08] MEDS: TAMSULOSIN 0.4 MG CAPSULE PO (08:59)
[2020-11-08] MEDS: HYDROMORPHONE 4 MG TABLET PO ×3 (09:02→23:22)
--- NOTE | 2020-11-08 10:02 | PC.NURSE ---
Dayshift Note: Pt checked on and assessed. Pt is alert and oriented. Pt reports pain 3.5-4/10 in R ribs, worse with movement. Pt given PO dilaudid for pain control. Pt received on 4 L NC, SPO2 after getting up to chair was 89%, ~45 minutes after pt was up in chair his SPO2 gradually increased to 94%. Pt encouraged to deep breathe, given dilaudid PO for pain control to assist with pt's ability to draw deeper breaths. Pt not assessed on IS but pt reports that he has been working on IS this shift. Lungs with crackles in L base. Pt with a slight moaning sound on inspiration bilaterally throughout on auscultation. MD did not auscultate this sound when assessed 1 hour later. Pt denies SOB, does not appear to be using accessory muscles or be in respiratory distress at this time. 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 Given am anti-hypertensives. Pt otherwise with no edema, good peripheral pulses and cap refill. Denies cardiac CP. Pt reports that he has not had BM x4 days. Pt states that he does not feel constipated, and that he has not had much to eat in the last few days. Miralax given with am meds. Pt reports that he has had urinary retention in the past, especially related to narcotics. Pt currently has indwelling catheter in place. Pt with R rib fractures. Pt reports pain and difficulty drawing deep breaths. Otherwise 1 person assist with FWW for mobility. Call light in reach. Up in chair after working with PT this shift. Will notify MD with changes.
--- NOTE | 2020-11-08 11:19 | OT.IP.TRT ---
Current Diagnoses Pneumonia, unspecified organism (11/05/20) Multiple fractures of ribs, right side, initial encounter for closed fracture (11/05/20) Occupational Therapy Treatment Note M2 OT-IP Current Condition Start: 11/06/20 13:09 Freq: Status: Active Protocol: Document 11/06/20 13:10 [facility] (Rec: 11/06/20 13:19 [facility] [id number]) Occupational Therapy Current Condition Current Condition Evaluation Date 11/06/20 Treatment Diagnosis R rib fx with coffee ground emesis, 10L O2 high flow at time of eval Diagnosis Onset Date 11/05/20 M3 OT- IP Subjective and Pain Start: 11/06/20 13:09 Freq: Status: Active Protocol: Document 11/08/20 11:20 [facility] (Rec: 11/08/20 11:34 [facility] [id number]) OT- Subjective Occupational Therapy Visit Type Type Treatment Note Visit Start Time 11:10 Visit Stop Time 11:19 Total Visit Minutes 9 Occupational Therapy Visit Comments Patient Comments Pt not wanting to get up at this time as comfortable. Pt did agree to do cognitive function assessment. Patient/Caregiver Goals To go home. OT Pain Assessment Pain When Pain Assessed At Rest Pain Present Pain Present Pain Reported M4 OT- IP ADL's Start: 11/06/20 13:09 Freq: Status: Active Protocol: Document 11/06/20 13:10 [facility] (Rec: 11/06/20 13:19 [facility] [id number]) OT XLA-Yqqy-Hiradjw General Evaluation Self-Feeding Ability Independent OT ADL-Grooming Comments OT Grooming Comments Pt declined to participate OT ADL-Oral Care Comments Oral Care Comments Pt declined stating that he has no teeth OT ADL-Dressing General Eval Lower Body Dressing Ability Total Assistance Areas Needing Assistance Socks OT ADL-Toileting Comments OT Toileting Comments Not performed, pt declined need OT ADL-Bathing Comments OT Bathing Comments Not performed M5 OT- IP IADL's Start: 11/06/20 13:09 Freq: Status: Active Protocol: Document 11/06/20 13:10 [facility] (Rec: 11/06/20 13:19 [facility]GR [id number]) OT-Instrumental Activities of Daily Living Deficits IADL Deficits Identified No Deficits Home Safety Awareness Awareness of Need for Assistance at Home Good Awareness Ability to Problem Solve Emergency Able to Problem Solve Situations Medication Management Medication Management No Deficits Identified Money Management Money Management No Deficits Identified Meal Preparation Meal Preparation Comments Concerns regarding pt's ability to perform at this time Rd Manager Rd Manager Comments Concerns regarding pt's ability to perform at this time Driving Driving Comments Pt does not drive at baseline M6 OT- IP Functional Cognition Start: 11/06/20 13:09 Freq: Status: Active Protocol: Document 11/08/20 11:20 [facility] (Rec: 11/08/20 11:34 [facility] [id number]) Cognitive Factors Limiting Selfcare Function Cognitive Ability Level of Alertness Alert Patient Orientation Name,Age,Birthday,Month,Date, Year,Day of Week,Place, Situation Attention Span Ability Capable of Focused Attention, Capable of Sustained Attention Ability to Follow Commands Able to Follow Multi-Step Commands Cognitive Comments Cognitive Assessment Comments Pt appears at baseline for cognitive needs. Pt scored 67 seconds on [place] making Part B which implies normal but not perfect for visual attention, task switching, executive function, speed of processing, and mental flexibility. Pt scored at approx 85% for his age group. Pt states to get a FWW and also use a shower chair at home. M7 OT- IP Mobility and Balance Start: 11/06/20 13:09 Freq: Status: Active Protocol: Document 11/06/20 13:10 [facility] (Rec: 11/06/20 13:19 [facility]GR [id number]) OT- Bed Mobility Assessment Supine to Sit Supine to Sit Assist Minimal Assistance,Head of Bed Elevated,Bedrails Scooting Scooting to Edge of Bed Standby Assistance,Head of Bed Elevated,Bedrails OT-Transfer Assessment Sit to and From Stand Sit to and from Stand Minimal Assistance Transfers Transfer Ability Minimal Assistance Technique Transfer Destination Bed,Chair Transfer Technique Stand Step Pivot Devices Transfer Assistive Devices Gait Belt Comments Mobility Comments Pt is unsteady on his feet for short distance from bed to chair. OT- Gait Assessment Comments Gait Ability Comments not performed OT- Balance Assessment Sitting Balance and Reactions Static Sitting Balance Ability Fair Dynamic Sitting Balance Ability Fair M8 OT- IP Objective Assessments Start: 11/06/20 13:09 Freq: Status: Active Protocol: Document 11/06/20 13:10 [facility] (Rec: 11/06/20 13:19 [facility] [id number]) OT Gross Range of Motion Upper Extremity Range of Motion Assessment Right Impaired ROM Impairments R impaired d/t pain OT Strength Comments Strength Comments R arm not tested, LUE grossly 4+/5 OT- Coordination Assessment Upper Extremity Finger to Nose Test Within Functional Limits Finger Tapping Test Within Functional Limits OT-Muscle Tone Assessment Muscle Tone WNL Yes OT Sensation Assessment Edema Edema Absent M9 OT- IP Assessment and Plan Start: 11/06/20 13:09 Freq: Status: Active Protocol: Document 11/08/20 11:20 [facility] (Rec: 11/08/20 11:34 [facility] [id number]) OT Summary Assessment and Plan Potential Rehabilitation Potential Good Analytic Complexity at Evaluation Low Summary Progress Towards Goals Progressing Toward Goals Assessment Summary Pt not wanting to get up at this time but agreed to do cognitive assessment and talk of of OT equipment needs for home. Pending medical status and O2 use home versus SNF. Goals Self-Feeding Goal Independent Grooming Goal Independent Dressing Goal Independent Toileting Goal Independent Bathing Goal Independent Toilet Transfer Goal Independent Shower Transfer Goal Independent Days to Meet Goals 9 Frequency of Treatment Frequency Of Treatment Once a Day Treatment Plan OT Treatment Plan ADL Training,Functional Mobility,Patient/Family Education,Discharge Planning Other Treatment Recommendations and Next shower if able Treatment Focus Discharge Recommendations OT Discharge Recommendations Home vs SNF Transportation Needs at Discharge Private Vehicle
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
[2020-11-08] MEDS: LIDOCAINE PATCH 1 EACH ADH..PATCH TOP (22:15)
[2020-11-09] VITALS (12 sets, daily range): BP systolic 114–146; BP diastolic 62–76; PULSE 63–93; RESP 16–22; TEMP 36.7–37.3; O2SAT 92–96
[2020-11-09] MEDS: SODIUM CHLORIDE 0.9% FLUSH 10 ML IV ×3 (00:56→22:21)
[2020-11-09] MEDS: PIPERACILLIN-TAZO 3.375 GM/50 ML FROZ.PIGGY IV ×3 (00:56→17:11)
--- NOTE | 2020-11-09 02:03 | PC.NURSE ---
Addendum entered by Yadira Lewis R.N. 11/09/20 06:04: Patient up to bathroom to urinate and only able to void 175cc dark dung urine states comes in spurts. PVR 554cc. Kee APODACA, informed and order received to insert indwelling catheter. Catheter placed and 650cc urine returned thus far; patient tolerated well. Oxygen has been decreased to 2L/min and maintaining sats in mid 90's. Original Note: patient is alert and oriented. Breath sounds continue to be diminished throughout, coarse and with crackles at bases. Taking shallow respirations but is able to take deeper breaths with discomfort in right back/ribs. Did demonstrate use of I.S. and able to get to [id number]. Is on oxygen at 3L/min per HFNC with sat of 94%; on continuous oximetry. HR sounds irregular; telemetry reading was SR w/PVC's. BT present and abdomen is soft; patient reports having had BM earlier. Had catheter removed on day shift and had only urinated 200cc on eves so bladder scan was done showing high volume so had in/out cath done at shift change. Is able to turn with assistance but only wants to lie on back due to discomfort. Did complain of 4/10 back/rib pain and was medicated with po Dilaudid and is now asleep; ice pack also applied to back. Noted bruising to lateral right rib cage area. Is wearing bilateral calf SCD's. Fall risk score is high and bed alarm is activated.
[2020-11-09] MEDS: ALBUTEROL/IPRATROPIUM 3 ML AMPUL INH ×4 (02:25→19:55)
[2020-11-09] MEDS: HYDROMORPHONE 4 MG TABLET PO ×2 (05:50→13:04)
[2020-11-09 05:55] LABS: Add Manual Diff / Slide Review NO; Basophils Absolute Auto 100 /uL (0-100); Eosinophils Absolute Auto 600 /uL (0-450); Eosinophils Percent Auto 5.7 % (2-4); Hematocrit 32.9 % (41-53); Hemoglobin 11.1 g/dL (13.5-17.5); Lymphocytes Absolute Auto 1500 /uL (1100-4500); Lymphocytes Percent Auto 13.9 % (25-40); Mean Corpuscular HGB Conc 33.7 % (30-36); Mean Corpuscular Hemoglobin 31.6 PG (26-34); Mean Corpuscular Volume 93.8 fL (80-100); Monocytes Absolute Auto 1400 /uL (0-900); Monocytes Percent Auto 12.8 % (3-14); Neutrophils Absolute Auto 7100 /uL (1500-7000); Neutrophils Percent Auto 66.6 % (50-75); Platelet Count 316 X10^3/uL (150-400); Red Cell Distribution Width 15.1 % (11.6-14.8); White Blood Cell Count 10.6 X10^3/uL (4.5-11.0)
[2020-11-09 05:58] LABS: BUN Creatinine Ratio 10.9 (6-22); Blood Urea Nitrogen 12 mg/dL (9-20); Carbon Dioxide 26 mmol/L (22-32); Chloride 101 mmol/L (98-107); Estimated Glomerular Filt Rate > 60.0 mL/min (>60); Glucose 135 mg/dL (80-110); HEMOLYSIS < 15 (0-50); Potassium 3.6 mmol/L (3.4-5.1); Sodium 135 mmol/L (137-145)
[2020-11-09] MEDS: PANTOPRAZOLE DR 40 MG TABLET PO (06:30)
--- NOTE | 2020-11-09 09:00 | PT.IPTN ---
Current Diagnoses Pneumonia, unspecified organism (11/05/20) Multiple fractures of ribs, right side, initial encounter for closed fracture (11/05/20) Physical Therapy Treatment Note M2 PT-IP Current Condition Start: 11/06/20 14:12 Freq: NEEDED Status: Active Protocol: Document 11/06/20 13:35 AB (Rec: 11/06/20 14:24 AB [id number]) Physical Therapy Current Condition Current Condition Evaluation Date 11/06/20 Treatment Diagnosis PNA; R closed rib fx 3-9; difficulty in walking Onset Date 11/05/20 Precautions Other Precautions falls; O2 sat M3 PT-IP Subjective Start: 11/06/20 14:12 Freq: NEEDED Status: Active Protocol: Document 11/09/20 12:03 [facility] (Rec: 11/09/20 12:11 [facility] [id number]) Subjective Physical Therapy Visit Type Type Treatment Note Visit Start Time 08:30 Visit Stop Time 09:00 Total Visit Minutes 30 Number of CENTRAL OFFICE INSPECTOR Visits 0 Physical Therapy Visit Comments Patient Comments Pt notes he wants to go home but unsure if he will be able to. His neighbor has a 4WW he can borrow Therapy Pain Assessment Pain When Pain Assessed During Mobility Pain Present Pain Present Pain Reported Location Right Ribs Pain Behaviors Facial Grimacing,Moaning, Wincing M4 PT-IP Mobility and Gait Start: 11/06/20 14:12 Freq: NEEDED Status: Active Protocol: Document 11/09/20 12:03 [facility] (Rec: 11/09/20 12:11 [facility] [id number]) PT-Bed Mobility Assessment Supine to Sit Supine to Sit Minimal Assistance,Bedrails Scooting Scooting to Edge of Bed Standby Assistance Scooting Up and Down in Bed Standby Assistance PT-Transfer Assessment Sit to and From Stand Sit to and from Stand Contact Guard Assistance,Use of Upper Extremities Equipment Transfer Assistive Device Gait Belt,Front Wheeled Walker Orthotic/Prosthetic Devices or Brace: No Transfers Transfer Destination Chair Transfer Technique ambulated using FWW Transfer Ability Level of Assist Contact Guard Assistance,Use of Upper Extremities Comments Mobility Comments Pt able to walk and do all PT with 2L of O2 and dropped no lower than 88% but would inc back to greater than 90 w/in 10 sec. He did not follow cueing for supien to sit for log roll technique even w/max cueing. He heavily uses bed rail to get up out of bed and shift ot L side in bed. He did Sit to stand w/CGA to FWW then amb about 40ft in room w/ FWW CGA w/PT monitoring O2 line. Pt sat in chair CGA. educated on Log roll technique w/PT demo and edu re: why for in/out of bed. Pt then stood from chair CGA to 4WW and amb 30ft around bed and sat in av CGA. Left w/call light inr each. M5 PT-IP Objective Assessments Start: 11/06/20 14:12 Freq: NEEDED Status: Active Protocol: Document 11/06/20 13:35 AB (Rec: 11/06/20 14:24 AB [id number]) Orientation Orientation/Cognition Level of Alertness Alert Orientation Name,Place,Situation Safety Awareness Decreased Safety Awareness Memory Description No Deficits Noted Gross Range of Motion Lower Extremity ROM Assessment Within Functional Limits Strength Lower Extremity Strength Assessment Within Functional Limits Coordination Assessment Gross Coordination Gross Coordination WNL Muscle Tone Muscle Tone WNL Yes M6 PT-IP Treatment Start: 11/06/20 14:12 Freq: NEEDED Status: Active Protocol: Document 11/08/20 07:58 [facility] (Rec: 11/08/20 08:08 [facility] [id number]) Physical Therapy Treatment Education Education Provided Safety Other Treatments Other Treatment Performed log roll edu, edu on importance on inc mobility M7 PT-IP Assessment and Plan Start: 11/06/20 14:12 Freq: NEEDED Status: Active Protocol: Document 11/09/20 12:03 [facility] (Rec: 11/09/20 12:11 [facility] [id number]) PT Summary Assessment and Plan Summary Impairments Pain,ROM,Strength,Balance, Coordination,Sensation,Tone, Cognition,Bed Mobility, Transfers,Gait,Activity Tolerance Assessment Summary pt cont to iprove slowly but has signficant difficulty w/ gettng in/out of bed and would be unable to do this at home alone and this is the surface he would be sitting/laying on during the day as he does not have other options. He moves slowly and requires significant time to get around and has very low activity tolerance along w/requriing assist for O2 line d/t requriing 2 hands to stabilize self w/FWW or 4WW. He would bneeift from SNF rehab to work on his mobility and safety prior to returning home. Goals Bed Mobility Goal Standby Assistance Transfer Goal Standby Assistance,Front Wheeled Walker Gait Goal Standby Assistance,Front Wheel Walker Gait Distance 100 Other Goals improve bed mobility, transfers to modified I and ambulation using FWW/without AD 150 ft SBA Days to Meet Goals 10 Frequency of Treatment Frequency Of Treatment Once a Day Treatment Plan Physical Therapy Treatment Plan Bed Mobility Training,Transfer Training,Gait Training, Therapeutic Exercise,Balance Retraining,Discharge Planning, Neuromuscular Re-ed, Coordination Retraining Precautions Other Precautions O2 Recommendations To Nursing Amount of Assist Needed 1 Person Assist Discharge Recommendations PT Discharge Recommendations SNF Rehab
[2020-11-09] MEDS: ENOXAPARIN 40 MG/0.4 ML SYRINGE SUBCUT (09:36)
[2020-11-09] MEDS: AMLODIPINE 5 MG TABLET 10 MG PO (09:36)
[2020-11-09] MEDS: GABAPENTIN 300 MG CAPSULE PO ×2 (09:37→22:12)
[2020-11-09] MEDS: TAMSULOSIN 0.4 MG CAPSULE PO (09:37)
[2020-11-09] MEDS: LOSARTAN 50 MG TABLET PO (09:37)
--- NOTE | 2020-11-09 10:12 | CM.DPC ---
DCP/continued: Reviewed chart. Per provider patient is medically stable for discharge. SECURITY SYSTEM INSTALLER met with patient this AM to discuss plan. Patient reports that he continues to feel very weak. Patient agreeable to short SNF stay. Patient's first SNF choice is [facility]. Placed call to Krystyna at [facility]. She has not received any information re: this patient. SECURITY SYSTEM INSTALLER faxed notes and demographic sheet for [facility] to review. Patient primary payor is [employer]. Krystyna reports that authorization will need to be obtained. Krystyna will review and initiate authorization from [employer]. Patient aware and agreeable to SNF and home with home health if authorization not obtained. P: Anticipate either SNF vs. home with home health. [facility] reviewing now. SANYA Moses
--- NOTE | 2020-11-09 11:06 | OT.IP.TRT ---
Current Diagnoses Pneumonia, unspecified organism (11/05/20) Multiple fractures of ribs, right side, initial encounter for closed fracture (11/05/20) Occupational Therapy Treatment Note M2 OT-IP Current Condition Start: 11/06/20 13:09 Freq: Status: Active Protocol: Document 11/06/20 13:10 [facility] (Rec: 11/06/20 13:19 [facility] [id number]) Occupational Therapy Current Condition Current Condition Evaluation Date 11/06/20 Treatment Diagnosis R rib fx with coffee ground emesis, 10L O2 high flow at time of eval Diagnosis Onset Date 11/05/20 M3 OT- IP Subjective and Pain Start: 11/06/20 13:09 Freq: Status: Active Protocol: Document 11/09/20 11:09 [facility] (Rec: 11/09/20 11:24 [facility] [id number]) OT- Subjective Occupational Therapy Visit Type Type Treatment Note Visit Start Time 10:27 Visit Stop Time 11:06 Total Visit Minutes 39 Occupational Therapy Visit Comments Patient Comments Pt willng to get up. Patient/Caregiver Goals Pt now feeling like he is unable to care for himself at home and open to going to skilled rehab. OT Pain Assessment Pain When Pain Assessed At Rest Pain Present Pain Present Pain Reported Location Right Ribs Intensity 5 Scale Used Numeric (0 - 10) M4 OT- IP ADL's Start: 11/06/20 13:09 Freq: Status: Active Protocol: Document 11/09/20 11:09 [facility] (Rec: 11/09/20 11:24 [facility] [id number]) OT [id number]-[id number]-Vasbnzv General Evaluation Self-Feeding Ability Independent OT ADL-Dressing General Eval Lower Body Dressing Ability Maximum Assistance Areas Needing Assistance Socks Comments OT Dressing Comments Pt not able to agustin right shoe and will be needing assist to agustin right LE for all LB dressing needs due to his pain preventing him from bending over. Pt educated on LB dressing equipment to help increase independence with needs. Spoke on trying to wear looser clothing and shorts to increase ease for needs. OT ADL-Toileting General Evaluation Areas Needing Assistance Empty Catheter or Colostomy Comments OT Toileting Comments Barber catheter in place. If going home pt would benefit from education of cath care and use of leg bag. OT ADL-Bathing Comments OT Bathing Comments Pt too tired to try at this time. 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 Pt educated to be more mindful of catheter placement and where to place it as pt was unable to reach the catheter on the left side due to his pain and unable to reach over with his left arm. M7 OT- IP Mobility and Balance Start: 11/06/20 13:09 Freq: Status: Active Protocol: Document 11/09/20 11:09 [facility] (Rec: 11/09/20 11:24 [facility] [id number]) OT- Bed Mobility Assessment Supine to Sit Supine to Sit Assist Moderate Assistance Sit to Supine Sit to Supine Assist Standby Assistance OT-Transfer Assessment Sit to and From Stand Sit to and from Stand Standby Assistance Transfers Transfer Ability Standby Assistance,Minimal Assistance Technique Transfer Destination Bed,Chair Transfer Technique Stand Step Pivot Devices Transfer Assistive Devices Gait Belt Comments Mobility Comments Pt able to get himself into bed however not able to get up as having too much pain and needing MODA to get up to the edge of the bed. Pt also will need more assist to come to stand from lower surfaces. OT- Gait Assessment Comments Gait Ability Comments Assist for O2 tubing needs, pt able to walk in the room back and forth twice and O2 on RA dropped below 88%, however able to recover after a minute of deep breathing to above 90 %. Pt states he is feeling very tired. OT- Balance Assessment Sitting Balance and Reactions Static Sitting Balance Ability Good Dynamic Sitting Balance Ability Fair Standing Balance and Reactions Static Standing Balance Ability Fair M8 OT- IP Objective Assessments Start: 11/06/20 13:09 Freq: Status: Active Protocol: Document 11/06/20 13:10 [facility] (Rec: 11/06/20 13:19 [facility] [id number]) OT Gross Range of Motion Upper Extremity Range of Motion Assessment Right Impaired ROM Impairments R impaired d/t pain OT Strength Comments Strength Comments R arm not tested, LUE grossly 4+/5 OT- Coordination Assessment Upper Extremity Finger to Nose Test Within Functional Limits Finger Tapping Test Within Functional Limits OT-Muscle Tone Assessment Muscle Tone WNL Yes OT Sensation Assessment Edema Edema Absent M9 OT- IP Assessment and Plan Start: 11/06/20 13:09 Freq: Status: Active Protocol: Document 11/09/20 11:09 [facility] (Rec: 11/09/20 11:24 [facility] [id number]) OT Summary Assessment and Plan Potential Rehabilitation Potential Good Analytic Complexity at Evaluation Low Summary Progress Towards Goals Progressing Toward Goals Assessment Summary Pt still having pain with his ribs, fatigued, and therefore needing MODA to help get out of bed and MODA for LB dressing needs. Pt would benefit from short rehab stay to help increase independence via various options, equipment for ADL needs and to help increase overall activity tolerance and mobility needs of getting out of the bed. In addition pt has a catheter which he did not have before and would be good for pt to be educated on how to care for it. Still recommend short rehab skilled stay versus home with assist and home health. Goals Self-Feeding Goal Independent Grooming Goal Independent Dressing Goal Independent Toileting Goal Independent Bathing Goal Independent Toilet Transfer Goal Independent Shower Transfer Goal Independent Days to Meet Goals 8 Frequency of Treatment Frequency Of Treatment Once a Day Treatment Plan OT Treatment Plan ADL Training,Functional Mobility,Patient/Family Education,Discharge Planning Discharge Recommendations OT Discharge Recommendations SNF Rehab Other Discharge Recommendations if pt having to go home , home with assist and home health. Transportation Needs at Discharge Private Vehicle,Wheelchair/ Cabulance
--- NOTE | 2020-11-09 11:50 | RT ---
Patient on RA saturation at rest remains greater than 92%, with ambulation patient oxygen saturation dropped below 88%, patient recovered quickly with rest. Patient may benefit from oxygen with ambulation upon discharge
--- NOTE | 2020-11-09 16:11 | CM.DPC ---
DCP/continued: Placed call to [facility] re: authorization for SNF transfer. LINE PATROLMAN spoke with Krystyna and she reports that she has submitted authorization request to [facility]. No authorization received as of 4:00pm today. LINE PATROLMAN updated provider and RN. Will anticipate that authorization will be obtained tomorrow 11-10-20 for transfer to SNF. PASRR needed. P: Pending SNF authorization to [facility]. SANYA Moses
[2020-11-09] MEDS: SODIUM CHLORIDE 0.9% 250 ML 21 ML IV (17:11)
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
[2020-11-09] MEDS: ACETAMINOPHEN 325 MG TABLET 650 MG PO (20:39)
[2020-11-09] MEDS: LIDOCAINE PATCH 1 EACH ADH..PATCH TOP (22:12)
[2020-11-09] MEDS: DOCUSATE 100 MG CAPSULE PO (22:12)
--- NOTE | 2020-11-09 22:15 | PC.NURSE ---
Patient awake, sitting up in bed, 2100 meds given at 2200 per patient request.
[2020-11-10] VITALS: BP 120/72; PULSE 82; RESP 18; TEMP 36.7; O2SAT 95
[2020-11-10] MEDS: PIPERACILLIN-TAZO 3.375 GM/50 ML FROZ.PIGGY IV ×2 (01:00→09:48)
[2020-11-10 01:55] VITALS: PULSE 73; RESP 17; O2SAT 94
[2020-11-10] MEDS: ALBUTEROL/IPRATROPIUM 3 ML AMPUL INH ×2 (01:55→07:45)
[2020-11-10 04:33] VITALS: BP 149/76; PULSE 89; RESP 16; TEMP 37.1; O2SAT 94
[2020-11-10] MEDS: ACETAMINOPHEN 325 MG TABLET 650 MG PO ×2 (04:51→09:59)
[2020-11-10 06:42] LABS: BUN Creatinine Ratio 12.7 (6-22); Blood Urea Nitrogen 13 mg/dL (9-20); Calcium 8.4 mg/dL (8.4-10.2); Carbon Dioxide 24 mmol/L (22-32); Chloride 103 mmol/L (98-107); Estimated Glomerular Filt Rate > 60.0 mL/min (>60); Glucose 125 mg/dL (80-110); HEMOLYSIS < 15 (0-50); Potassium 3.5 mmol/L (3.4-5.1); Sodium 134 mmol/L (137-145)
[2020-11-10] MEDS: PANTOPRAZOLE DR 40 MG TABLET PO (06:49)
[2020-11-10 07:00] LABS: Hematocrit 26.9 % (41-53); Hemoglobin 9.3 g/dL (13.5-17.5); Mean Corpuscular HGB Conc 34.8 % (30-36); Mean Corpuscular Hemoglobin 32.3 PG (26-34); Mean Corpuscular Volume 92.8 fL (80-100); Platelet Count 244 X10^3/uL (150-400); Red Cell Distribution Width 15.1 % (11.6-14.8); White Blood Cell Count 9.1 X10^3/uL (4.5-11.0)
[2020-11-10 07:27] VITALS: BP 156/82; PULSE 80; RESP 18; TEMP 36.8; O2SAT 96
[2020-11-10 07:45] VITALS: PULSE 61; RESP 18; O2SAT 93
--- NOTE | 2020-11-10 09:27 | OT.IP.TRT ---
Current Diagnoses Pneumonia, unspecified organism (11/05/20) Multiple fractures of ribs, right side, initial encounter for closed fracture (11/05/20) Occupational Therapy Treatment Note M2 OT-IP Current Condition Start: 11/06/20 13:09 Freq: Status: Active Protocol: Document 11/06/20 13:10 CGR (Rec: 11/06/20 13:19 CGR [id number]) Occupational Therapy Current Condition Current Condition Evaluation Date 11/06/20 Treatment Diagnosis R rib fx with coffee ground emesis, 10L O2 high flow at time of eval Diagnosis Onset Date 11/05/20 M3 OT- IP Subjective and Pain Start: 11/06/20 13:09 Freq: Status: Active Protocol: Document 11/10/20 10:12 [facility] (Rec: 11/10/20 10:21 [facility] [id number]) OT- Subjective Occupational Therapy Visit Type Type Treatment Note Visit Start Time 08:38 Visit Stop Time 09:03 Total Visit Minutes 25 Occupational Therapy Visit Comments Patient Comments Pt wanting to use the bathroom . Patient/Caregiver Goals To go to skilled rehab and get better before going home. OT Pain Assessment Pain When Pain Assessed During Mobility Pain Present Pain Present Pain Reported Location Right Ribs Intensity 5 Scale Used Numeric (0 - 10) M4 OT- IP ADL's Start: 11/06/20 13:09 Freq: Status: Active Protocol: Document 11/10/20 10:12 [facility] (Rec: 11/10/20 10:21 [facility] [id number]) OT ADL-Dressing General Eval Lower Body Dressing Ability Standby Assistance Areas Needing Assistance Underpants/Brief Comments OT Dressing Comments Issued pt LB dressing equipment to help increase independence for LB dressing needs. OT ADL-Toileting General Evaluation Toileting Ability Moderate Assistance Areas Needing Assistance Perform Perineal Hygiene Comments OT Toileting Comments Due to pt's pain unable to reach to clean himself thoroughly. Spoke of possibly getting a toilet paper aid or just shower afterwards. OT ADL-Bathing Comments OT Bathing Comments Pt states to shower later. Pt states able to get a shower chair. 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 M7 OT- IP Mobility and Balance Start: 11/06/20 13:09 Freq: Status: Active Protocol: Document 11/10/20 10:12 [facility] (Rec: 11/10/20 10:21 [facility] [id number]) OT- Bed Mobility Assessment Supine to Sit Supine to Sit Assist Standby Assistance OT-Transfer Assessment Sit to and From Stand Sit to and from Stand Standby Assistance Transfers Transfer Ability Standby Assistance Technique Transfer Destination Bed,Chair,Toilet Transfer Technique Stand Step Pivot Devices Transfer Assistive Devices Gait Belt,Front Wheeled Walker Comments Mobility Comments Today at this time pt able to get up from the bed. Pt also able to manage placement of catheter better today to place on and off the FWW. Pt states to borrow a FWW from his landlord. OT- Balance Assessment Sitting Balance and Reactions Static Sitting Balance Ability Good Dynamic Sitting Balance Ability Fair Standing Balance and Reactions Static Standing Balance Ability Fair M8 OT- IP Objective Assessments Start: 11/06/20 13:09 Freq: Status: Active Protocol: Document 11/06/20 13:10 CGR (Rec: 11/06/20 13:19 CGR [id number]) OT Gross Range of Motion Upper Extremity Range of Motion Assessment Right Impaired ROM Impairments R impaired d/t pain OT Strength Comments Strength Comments R arm not tested, LUE grossly 4+/5 OT- Coordination Assessment Upper Extremity Finger to Nose Test Within Functional Limits Finger Tapping Test Within Functional Limits OT-Muscle Tone Assessment Muscle Tone WNL Yes OT Sensation Assessment Edema Edema Absent M9 OT- IP Assessment and Plan Start: 11/06/20 13:09 Freq: Status: Active Protocol: Document 11/10/20 10:12 [facility] (Rec: 11/10/20 10:21 [facility] [id number]) OT Summary Assessment and Plan Potential Rehabilitation Potential Good Analytic Complexity at Evaluation Low Summary Progress Towards Goals Progressing Toward Goals Assessment Summary Pt moving better today however still in lots of pain and apprehensive of being able to take care of himself. Pt would benefit from skilled rehab to continue to improve his independence and activity tolerance before going home. Pt is very cooperative and pleasant. Goals Self-Feeding Goal Independent Grooming Goal Independent Dressing Goal Independent Toileting Goal Independent Toilet Transfer Goal Independent Shower Transfer Goal Independent Days to Meet Goals 7 Frequency of Treatment Frequency Of Treatment Once a Day Treatment Plan OT Treatment Plan ADL Training,Functional Mobility,Patient/Family Education,Discharge Planning Discharge Recommendations OT Discharge Recommendations SNF Rehab Transportation Needs at Discharge Wheelchair/Cabulance
[2020-11-10] MEDS: ENOXAPARIN 40 MG/0.4 ML SYRINGE SUBCUT (09:49)
[2020-11-10] MEDS: GABAPENTIN 300 MG CAPSULE PO (09:50)
[2020-11-10] MEDS: TAMSULOSIN 0.4 MG CAPSULE PO (09:50)
[2020-11-10] MEDS: SODIUM CHLORIDE 0.9% FLUSH 10 ML IV (09:52)
--- NOTE | 2020-11-10 09:53 | PT.IPTN ---
Current Diagnoses Pneumonia, unspecified organism (11/05/20) Multiple fractures of ribs, right side, initial encounter for closed fracture (11/05/20) Physical Therapy Treatment Note M2 PT-IP Current Condition Start: 11/06/20 14:12 Freq: NEEDED Status: Discharge Protocol: Document 11/06/20 13:35 AB (Rec: 11/06/20 14:24 AB [id number]) Physical Therapy Current Condition Current Condition Evaluation Date 11/06/20 Treatment Diagnosis PNA; R closed rib fx 3-9; difficulty in walking Onset Date 11/05/20 Precautions Other Precautions falls; O2 sat M3 PT-IP Subjective Start: 11/06/20 14:12 Freq: NEEDED Status: Discharge Protocol: Document 11/10/20 09:32 SP (Rec: 11/10/20 17:25 SP [id number]) Subjective Physical Therapy Visit Type Type Treatment Note Visit Start Time 09:32 Visit Stop Time 09:53 Total Visit Minutes 31 Notes Vitals taken during tx: seated O2 93% on RA, HR91; post mobility 93% on RA HR 100 . Number of MEDICAL COMMUNICATION SPECIALIST Visits 1 Physical Therapy Visit Comments Patient Comments Pt agreeable to work with therapy. Patient Goals Get stronger to return to appt . Therapy Pain Assessment Pain When Pain Assessed During Mobility Pain Present Pain Present Pain Reported Location Right Ribs Scale Used scale not quantified Pain Behaviors Facial Grimacing Pain Management Techniques Re-positioning,Timing of Activity with Medications M4 PT-IP Mobility and Gait Start: 11/06/20 14:12 Freq: NEEDED Status: Discharge Protocol: Document 11/10/20 09:32 SP (Rec: 11/10/20 17:25 SP [id number]) PT-Bed Mobility Assessment Rolling Type of Rolling Log Rolling,Roll to Right Level of Assist Standby Assistance Sit to Supine Sit to Supine Standby Assistance,Head of Bed Elevated Scooting Scooting Up and Down in Bed Standby Assistance PT-Transfer Assessment Sit to and From Stand Sit to and from Stand Standby Assistance,Use of Upper Extremities Equipment Transfer Assistive Device Gait Belt,Front Wheeled Walker Orthotic/Prosthetic Devices or Brace: No Transfers Transfer Destination Bed Transfer Technique pt ambulated using FWW Transfer Ability Level of Assist Standby Assistance,Use of Upper Extremities Comments Mobility Comments Completed sit>stand from chair sBA using BUE on chair arms. Pt ambulated further distance into hallway 135 ft total using mod UE WB on FWW SBA-CGA , cued for increase foot clearance and stride, slow breaths and able to take stand rest breaks if needed. Pt returned to EOB stand>sit > supine SBA. Pt able to maintain 90s during mobility. Pt had call light and all needs in reach before left. Gait Assessment Gait Gait Assistance Required: Standby Assistance,Contact Guard Assist Distance (Feet) 135 Able to Maintain Weight Bearing Status Yes During Gait Assistive Devices Assistive Device Gait Belt,Front Wheeled Walker Orthotic/Prosthetic Devices or Brace: No Gait Deviations General Gait Pattern Antalgic,Decreased Stride Length,Decreased Feet Clearance Factors Limiting Gait Function Factors Limiting Gait Function Decreased Activity Tolerance, Decreased Strength,Limited Range of Motion,Pain,Poor Balance,Respiratory Distress Comments Gait Comments pls refer to mobility section for details Stair Climbing Assessment Comments Stair Climbing Comments Pt does not have stair at home to assess, level enterance. PT-Balance Assessment Sitting Balance and Reactions Static Sitting Balance Ability Good Dynamic Sitting Balance Ability Good Standing Balance and Reactions Static Standing Balance Ability Good Dynamic Standing Balance Ability Fair Device Used FWW M5 PT-IP Objective Assessments Start: 11/06/20 14:12 Freq: NEEDED Status: Discharge Protocol: Document 11/06/20 13:35 AB (Rec: 11/06/20 14:24 AB [id number]) Orientation Orientation/Cognition Level of Alertness Alert Orientation Name,Place,Situation Safety Awareness Decreased Safety Awareness Memory Description No Deficits Noted Gross Range of Motion Lower Extremity ROM Assessment Within Functional Limits Strength Lower Extremity Strength Assessment Within Functional Limits Coordination Assessment Gross Coordination Gross Coordination WNL Muscle Tone Muscle Tone WNL Yes M6 PT-IP Treatment Start: 11/06/20 14:12 Freq: NEEDED Status: Discharge Protocol: Document 11/10/20 09:32 SP (Rec: 11/10/20 17:25 SP [id number]) Physical Therapy Treatment Education Education Provided Safety Other Treatments Other Treatment Performed log roll edu, edu on importance on inc mobility M7 PT-IP Assessment and Plan Start: 11/06/20 14:12 Freq: NEEDED Status: Discharge Protocol: Document 11/10/20 09:32 SP (Rec: 11/10/20 17:25 SP [id number]) PT Summary Assessment and Plan Potential Rehabilitation Potential Good Status of Condition at Evaluation Evolving Summary Impairments Pain,ROM,Strength,Balance, Coordination,Sensation,Tone, Cognition,Bed Mobility, Transfers,Gait,Activity Tolerance Progress Towards Goals Progressing Toward Goals,Slow Progress due to Pain,Slow Progress due to Activity Tolerance Assessment Summary Pt requires CGA- SBA during all mobility using FWW short distance gait due to decreased strength and activity tolerance. Maintained SaO2 90s on room air. Recommending SNF to improve strength toward PLOF. Goals Bed Mobility Goal Standby Assistance Transfer Goal Standby Assistance,Front Wheeled Walker Gait Goal Standby Assistance,Front Wheel Walker Gait Distance 100 Other Goals improve bed mobility, transfers to modified I and ambulation using FWW/without AD 150 ft SBA Days to Meet Goals 10 Frequency of Treatment Frequency Of Treatment Once a Day Treatment Plan Physical Therapy Treatment Plan Bed Mobility Training,Transfer Training,Gait Training, Therapeutic Exercise,Balance Retraining,Discharge Planning, Neuromuscular Re-ed, Coordination Retraining Recommendations To Nursing Amount of Assist Needed 1 Person Assist Discharge Recommendations PT Discharge Recommendations SNF Rehab
[2020-11-10] MEDS: HYDROMORPHONE 4 MG TABLET PO (09:58)
[2020-11-10 10:13] LABS: COVID19 - ADMIT (NP swab/PCR) Negative (Negative)
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
--- NOTE | 2020-11-10 11:31 | PC.NURSE ---
Transfer. Pt transfered to [facility]. Report given to Melissa admitting nurse at facility. Reviewed hospital course. Pt does have a torres in - placed on 11-09-20 for urinary retention. To be eval at facility, may need to be seen by urology as he was unable to void here, cath placed for urinary retention. Reviewed adl's and skin condition. Pt is highly motivated about doing therapy so he can return home. Melissa's questions were answered. 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
--- NOTE | 2020-11-10 12:39 | CM.DPC ---
DCP/continued: Received call back from Krystyna at [facility] she reports that SNF authorization is obtained. Met with patient to confirm d/c plan. Patient aware and agreeable and copy of Important Message from Medicare provided. Completed PASRR and obtained orders. All faxed to [facility]. Patient scheduled to be picked up at approximately 11:00-11:30am. No additional needs identified. RN updated. P: [facility] today. SANYA Moses
== END 2020-11-10 11:15 | DRG 177 ==
LOC: ED 12:36 → AC 12:39 → ICU 11-06 09:04 → AC 11-08 08:44 → ICU 11-08 08:44 → AC 11-08 09:27
PROVIDERS: Internal Medicine; Nurse Practitioner Family; Admitting Provider Internal Medicine; Emergency Provider Emergency Medicine; PCP Internal Medicine; Referring Provider Emergency Medicine; Visit Provider Internal Medicine
DX: J69.0 Pneumonitis due to inhalation of food and vomit (principal); J96.01 Acute respiratory failure with hypoxia; S22.41XA Multiple fractures of ribs, right side, initial encounter for closed fracture; S27.329A Contusion of lung, unspecified, initial encounter; J98.11 Atelectasis; T17.890A Other foreign object in other parts of respiratory tract causing asphyxiation, initial encounter; J15.6 Pneumonia due to other Gram-negative bacteria; I10 Essential (primary) hypertension; M47.816 Spondylosis without myelopathy or radiculopathy, lumbar region; R33.9 Retention of urine, unspecified; R73.03 Prediabetes; V19.9XXA Pedal cyclist (driver) (passenger) injured in unspecified traffic accident, initial encounter; Z87.891 Personal history of nicotine dependence; Z20.822 Contact with and (suspected) exposure to COVID-19; Y93.55 Activity, bike riding
CPT/HCPCS: 36415; 36592; 36600; 70450; 71045; 71101; 71260; 71275; 72072; 72100; 72125; 74177; 80048; 80053; 81003; 82805; 83036; 83605; 83735; 83880; 84145; 85025; 85027; 85610; 85730; 86850; 86900; 86901; 87040; 87070; 87147; 87205; 87635; 87797; 93005; 94640; 94760; 94762; 94799; 96361; 96365; 96375; 96376; 97116; 97162; 97165; 97530; 97535; 99285; C9803; C9113; J1650; J2270; J2405; J2543; Q9967

== ENCOUNTER → 2024-01-22 08:47 | Outpatient (CLI) | payer OTHER, MEDICAID, SELFPAY ==
[2020-11-06 11:43] VITALS: BMI 25.1
--- NOTE | 2024-01-22 08:48 | DI.ECHO.S_ITS ---
[place] [facility]---------+ [facility] : : [address] : : [place] : : [id number] : : Phone: [phone] Echocardiogram Report + + :Name: ETTA DONAHUE Study Date: 01/22/2024 Height: 72 in : :[facility] ReadingLocation: Weight: 188 lb : : Gender: Male BSA: 2.1 m2 : :: 1945 Age: 78 yrs BP: 142/82 mmHg: :Reason For Study: MUMUR : :Ordering Physician: CARLOS, : :SUHAS Performed By: Vee Martinez : :Referring: SUHAS GONZALEZ : + + Interpretation Summary The ejection fraction is estimated to be 60-65%. Grade I diastolic dysfunction. The right ventricle is normal in size and function. Pulmonary artery pressures cannot be estimated because of the lack of a measurable TR jet velocity. The IVC is of normal diameter and collapses greater than 50% with a sniff. This suggests a low right atrial pressure of 3 mm Hg. No significant valvular abnormality. Procedure: A two-dimensional transthoracic echocardiogram with color flow and Doppler was performed. The study quality was technically adequate. There is no prior echocardiogram noted for this patient. The patient had occasional PVCs during the exam. The patient was in sinus rhythm with heart rates between 64-71 bpm during the exam. Left Ventricle: The left ventricle is normal in size and wall thickness. The ejection fraction is estimated to be 60-65%. There are no obvious focal wall motion abnormalities noted but poor endocardial definition reduces the sensitivity for the detection of such. Grade I diastolic dysfunction. Right Ventricle: The right ventricle is normal in size and function. Atria: The left atrial size is normal. Right atrial size is normal. There is no Doppler evidence for an interatrial shunt. Mitral Valve: There is a flat closure plane of the the mitral valve leaflets. There is mild mitral annular calcification. There is trace mitral regurgitation. Aortic Valve: The aortic valve is trileaflet. The aortic valve opens well. There is no aortic valve stenosis. No aortic regurgitation is present. Tricuspid Valve: The tricuspid valve is normal in structure and function. There is trace tricuspid regurgitation. Pulmonary artery pressures cannot be estimated because of the lack of a measurable TR jet velocity. Pulmonic Valve: The pulmonic valve leaflets are thin and pliable; valve motion is normal. There is mild pulmonic regurgitation. Great Vessels: The aortic root is normal size. The dimensions of the ascending aorta are normal. The IVC is of normal diameter and collapses greater than 50% with a sniff. This suggests a low right atrial pressure of 3 mm Hg. Pericardium/ Pleura There is no pericardial effusion. There is no pleural effusion. MMode/2D Measurements & Calculations LVIDd: 3.9 cm LVOT diam: 2.1 cm LVIDs: 2.8 cm Ao root diam: 3.5 cm FS: 27.9 % asc Aorta Diam: 3.4 cm IVSd: 0.98 cm LVPWd: 1.2 cm LV fry. diameter/BSA (cm/m^2): 1.9 LV sys. diameter/BSA (cm/m^2): 1.4 LA A2 area: 15.6 cm2 RA long axis: 4.7 cm LA A4 area: 20.3 cm2 RA area: 16.1 cm2 LA length (vol): 5.0 cm RA vol: 47.0 ml LA vol: 53.4 ml RA : 22.7 ml/m2 LA vol index: 25.7 ml/m2 IVC diam: 1.5 cm RVD1 (basal): 3.7 cm RVD2 (mid): 2.2 cm TAPSE: 2.1 cm Doppler Measurements & Calculations Ao V2 max: 126.2 cm/sec LVOT Max Yunier: 100.1 cm/sec Ao V2 mean: 86.2 cm/sec LV V1 max P.0 mmHg Ao max P.4 mmHg LV V1 VTI: 20.0 cm Ao mean P.4 mmHg MARY(I,D): 2.5 cm2 Ao V2 VTI: 26.6 cm MARY(V,D): 2.6 cm2 sev ratio: 0.75 MARY indexed to BSA (cm^2/m^2): 1.2 MV E max yunier: 72.3 cm/sec PA V2 max: 130.7 cm/sec MV A max yunier: 72.7 cm/sec PA V2 mean: 92.3 cm/sec MV E/A: 0.99 PA mean P.8 mmHg Med Peak E' Yunier: 5.0 cm/sec PA pr(Accel): 31.0 mmHg E/E' med: 14.4 Lat Peak E' Yunier: 4.9 cm/sec E/E' lat: 14.9 E/e' average: 14.7 MV dec time: 0.27 sec [facility] 66.5 ml Reading Physician:PM
== END ==
PROVIDERS: PCP Student in an Organized Health Care Education/Training Program; Referring Provider Student in an Organized Health Care Education/Training Program; Visit Provider Student in an Organized Health Care Education/Training Program
DX: R01.1 Cardiac murmur, unspecified (principal); I34.81 Nonrheumatic mitral (valve) annulus calcification
CPT/HCPCS: 93306

== ENCOUNTER 2024-04-14 13:58 | Emergency (ER) | payer OTHER, MEDICAID, SELFPAY ==
[2020-11-06 11:43] VITALS: BMI 25.1
[2024-04-14 14:01] VITALS: BP 102/65; PULSE 130; RESP 24; TEMP 36.6; O2SAT 97; BMI 25.0
--- NOTE | 2024-04-14 14:16 | EKG_ITS ---
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
--- NOTE | 2024-04-14 14:16 | DI.RAD.S_ITS ---
PROCEDURE: XR CHEST 1V INDICATIONS: suspected sepsis TECHNIQUE: One view of the chest was acquired. COMPARISON: [facility], CR, XR CHEST 1V, 11/07/2020, 8:35. FINDINGS: Surgical changes and devices: None. Lungs and pleura: Bilateral patchy pulmonary opacities most severe in the right base. Mediastinum: Mediastinal contours appear normal. Heart size is normal. Bones and chest wall: No suspicious bony lesions. Overlying soft tissues appear unremarkable. IMPRESSION: Bilateral pulmonary opacities most consistent with pneumonia particularly in the right base. Recommend interval follow-up to document resolution. Dictated by: Krystal Hillman M.D. on 04/14/2024 at 15:11 Approved by: Krystal Hillman M.D. on 04/14/2024 at 15:11
--- NOTE | 2024-04-14 14:46 | ED.CHESTPAIN ---
HPI - Chest Pain General Chief Complaint: Weakness Stated Complaint: abd px, sob, dizziness, dark urine, weak Time Seen by Provider: 04/14/24 14:46 Source: patient and other Mode of arrival: Wheelchair History of Present Illness HPI narrative: Patient is a 79-year-old male history of hypertension hyperlipidemia comes in for multiple complaints. States that he has been having some epigastric pain as well as been feeling a little weaker than normal. Also states that he has been feeling a little dizzy. At time of initial evaluation patient looks chronically ill but he denies any nausea or vomiting denies any blood thinners, he states that he is supposed to be on dual antiplatelet therapy with aspirin and Plavix, however he states he has not been taking this because he feels like whenever he does he has darker stools and was concerned that he might be bleeding. Related Data Home Medications Medication Instructions Recorded Confirmed amlodipine 10 mg tablet 10 mg PO DAILY 12/12/17 11/05/20 losartan 50 mg tablet 50 mg PO DAILY 11/05/20 07/04/23 aspirin 81 mg tablet,delayed 81 mg PO DAILY 07/04/23 07/04/23 release atorvastatin 20 mg tablet 20 mg PO DAILY 07/04/23 07/04/23 clopidogrel 75 mg tablet (Plavix) 75 mg PO DAILY 07/04/23 07/04/23 Allergies Allergy/AdvReac Type Severity Reaction Status Date / Time lisinopril Allergy Cramping Verified 07/04/23 11:02 of the Muscles Review of Systems Review of Systems Narrative: General: Positive generalized weakness, Denies fever, chills, weight loss HEENT: Denies headache, eye drainage, eye irritation, head trauma, sore throat, voice change Cardiovascular: Denies any chest pain, palpitations, shortness of breath, tachycardia Respiratory: Denies any shortness of breath, cough, wheeze, stridor GI/: Positive abdominal pain, nausea, denies any vomiting, diarrhea, bright red blood per rectum, melanotic stools, urinary frequency, urinary retention, dysuria, hematuria MSK: Denies any joint pain, muscle pains, swelling Skin: Denies any rashes, lesions, discoloration Neuro: Denies any headache, lightheadedness, dizziness, fainting, weakness Psych: Denies SI/HI Patient History Medical History (Updated 04/14/24 @ 18:32 by Kane Espinal DO) Osteoarthritis Mixed hyperlipidemia Prediabetes BPH with urinary obstruction Multiple fractures of ribs of left side Polyarthritis Hypertension Surgical History (Updated 07/04/23 @ 11:11 by Bridget Nugent RN) Hx of angioplasty History of jeremiah hole surgery Family History Father Cancer Social History household members: none Smoking Status: Former smoker alcohol intake: current Smoking Status: Former smoker alcohol intake frequency: 0-2 drinks per day Substance Use Type: marijuana Exam Narrative Exam Narrative: General: Chronically ill-appearing, Cooperative, comfortable, well-developed, not in acute distress HEENT: Normocephalic, atraumatic, PERRLA, normal sclera, eyelids normal, Neck: Active full range of motion, atraumatic Chest: Normal to inspection, negative crepitus, no overlying erythema ecchymosis Respiratory: Normal respiratory effort, not in acute respiratory distress, clear to auscultation bilaterally negative cough, wheeze, tachypnea, rhonchi, rales Cardiology: Regular rate rhythm negative gallop, murmur, rubs GI/: Normal to inspection, soft, nonrigid, no tenderness to palpation, exam deferred MSK: Full range of active range of motion of all 4 extremities, atraumatic Skin: No rashes lesions noted Neuro: Alert awake oriented x3, moves all 4 extremities spontaneously, cranial nerves intact, able to answer all questions appropriately follows commands appropriately Psych: Cooperative, negative suicidal or homicidal ideations Initial Vital Signs Initial Vital Signs: Vital Signs Temperature 97.9 F 04/14/24 14:01 Pulse Rate 130 H 04/14/24 14:01 Respiratory Rate 24 04/14/24 14:01 Blood Pressure 102/65 04/14/24 14:01 Pulse Oximetry 97 04/14/24 14:01 Oxygen Delivery Method Room Air 04/14/24 14:01 Course Orders Ordered: Discontinued Medications Aspirin (Aspirin 81 Mg Chew Tab) 324 mg PO NOW ONE Stop: 04/14/24 14:55 Last Admin: 04/14/24 14:57 Dose: 324 mg Documented By: OLGA LIDIA Heparin Sodium (Porcine) (Heparin 5,000 Unit/Ml Vial) 5,000 unit 60 unit/kg (5000 unit) IV NOW ONE Stop: 04/14/24 14:54 Last Admin: 04/14/24 14:58 Dose: 5,000 unit Documented By: OLGA LIDIA Sodium Chloride (Normal Saline 0.9%) 1,000 mls @ 1,000 mls/hr IV BOLUS ONE Stop: 04/14/24 15:14 Heparin Sodium/Dextrose (Heparin Drip) 25,000 unit in 500 mls @ 20.14 mls/hr IV CONT ROSALINDA; Protocol Last Titration: 04/14/24 15:14 Dose: 12 units/kg/hr, 20.14 mls/hr Documented By: OLGA LIDIA Co-signed By: YOBANI Admin: 04/14/24 15:00 Dose: 12 units/kg/hr, 20.14 mls/hr Documented By: OLGA LIDIA Co-signed By: CINTHIA Ondansetron HCl (Ondansetron 4 Mg/2 Ml Inj) 4 mg IV NOW PRN PRN Reason: Nausea And Vomiting Ondansetron HCl (Ondansetron 4 Mg Odt) 4 mg SL NOW PRN PRN Reason: Nausea And Vomiting Vital Signs Vital signs: Vital Signs - 8 hr 04/14/24 14:01 04/14/24 15:08 Temperature 97.9 F Pulse Rate 130 H 130 H Respiratory Rate 24 20 Blood Pressure 102/65 110/77 Pulse Oximetry 97 96 Oxygen Delivery Method Room Air Room Air MDM - Chest Pain Differential Diagnosis Differential diagnosis: Likely stable angina, unstable angina pectoris, atypical chest pain, st elevation myocardial infarction, chest pain and other (Electrolyte abnormality) Lab Data 04/14/24 14:41 04/14/24 14:41 Labs: Lab Results 04/14/24 04/14/24 04/14/24 Range/Units 14:41 14:41 14:41 WBC 17.4 H (4.5-11.0) X10^3/uL RBC 3.06 L (4.5-5.9) X10^6/uL Hgb 10.1 L (13.5-17.5) g/dL Hct 29.1 L (41-53) % MCV 94.8 (80-100) fL MCH 33.0 (26-34) PG MCHC 34.8 (30-36) % RDW 15.2 H (11.6-14.8) % Plt Count 304 (150-400) X10^3/uL Neut % (Auto) 80.3 H (50-75) % Lymph % (Auto) 6.2 L (25-40) % [place] % (Auto) 12.7 (3-14) % Eos % (Auto) 0.3 L (2-4) % Baso % (Auto) 0.5 (0-2) % Neut # (Auto) 47878 H (1776-2090) /uL Lymph # (Auto) 1100 (6511-9296) /uL [place] # (Auto) 2200 H (0-900) /uL Eos # (Auto) 100 (0-450) /uL Baso # (Auto) 100 (0-100) /uL PT 13.4 H (9.4-12.5) SECONDS INR 1.2 (0.9-1.3) APTT 33 (25.1-36.5) SECONDS Sodium 129 L (137-145) mmol/L Potassium 4.3 (3.4-5.1) mmol/L Chloride 99 (98-107) mmol/L Carbon Dioxide 16 L (22-32) mmol/L BUN 44 H (9-20) mg/dL Creatinine 1.72 H 1.70 H (0.66-1.25) mg/dL Estimated GFR 40 L 41 L (>60) mL/min BUN/Creatinine Ratio 25.6 H (6-22) Glucose 188 H (80-110) mg/dL Lactate 4.1 H* (0.7-2.1) mmol/L Calcium 9.1 (8.4-10.2) mg/dL Magnesium 2.3 (1.6-2.3) mg/dL Total Bilirubin 2.0 H (0.2-1.3) mg/dL AST 153 H (17-59) IU/L ALT 193 H (<50) IU/L Alkaline Phosphatase 130 H (38-126) U/L Total Creatine Kinase 166 (55-170) U/L Troponin I 3.000 H* (0.01-0.034) ng/mL NT-Pro-B Natriuret Pep 98624 H (<450) pg/mL Total Protein 7.3 (6.3-8.2) g/dL Albumin 3.9 (3.5-5.0) g/dL Globulin 3.4 (1.7-4.1) g/dL Albumin/Globulin Ratio 1.1 (1.0-2.8) Lipase 78 (23-300) U/L Procalcitonin 0.245 (<0.5) ng/mL MDM Narrative Medical decision making narrative: Patient is a 79-year-old male history of hypertension hyperlipidemia presenting for abdominal pain lightheaded dizziness weakness. Patient had EKG which did show ST elevations consistent with an inferior STEMI. Did obtain a right-sided EKG that did show elevation in V4 which would be a high likelihood of inferior STEMI. Patient was started on aspirin given heparin bolus and started on heparin drip. He was subsequently transferred to [facility] for a catheterization. 1455: Discussed case with Dr. Hewitt at [facility] for transfer to [facility] for catheterization for STEMI. Agrees with transfer agrees with aspirin and heparin. Patient was informed of this he agrees with being sent over to [facility] for catheterization. Discharge Plan Departure Patient Disposition: [facility] Clinical Impression: ST elevation myocardial infarction (STEMI) of inferior wall Prescriptions: No Action aspirin 81 mg tablet,delayed release (DR/EC) 81 mg PO DAILY atorvastatin 20 mg tablet 20 mg PO DAILY clopidogrel [Plavix] 75 mg tablet 75 mg PO DAILY amlodipine 10 mg tablet 10 mg PO DAILY Patient Comments: TAKE 1 TABLET BY MOUTH EVERY DAY losartan 50 mg tablet 50 mg PO DAILY Referrals: Rosalinda West PA-C [Primary Care Provider] -
--- NOTE | 2024-04-14 14:47 | EKG_ITS ---
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
[2024-04-14] MEDS: ASPIRIN 81 MG CHEW TAB 324 MG PO (14:57)
[2024-04-14] MEDS: HEPARIN 5,000 UNIT/ML VIAL 5000 UNIT IV (14:58)
[2024-04-14] MEDS: HEPARIN DRIP 25,000 UNIT/500 ML IV.SOLN 20.14 UNIT IV (15:00)
[2024-04-14 15:05] LABS: Add Manual Diff / Slide Review NO; Basophils Absolute Auto 100 /uL (0-100); Basophils Percent Auto 0.5 % (0-2); Eosinophils Absolute Auto 100 /uL (0-450); Eosinophils Percent Auto 0.3 % (2-4); Hematocrit 29.1 % (41-53); Hemoglobin 10.1 g/dL (13.5-17.5); Lymphocytes Absolute Auto 1100 /uL (1100-4500); Lymphocytes Percent Auto 6.2 % (25-40); Mean Corpuscular HGB Conc 34.8 % (30-36); Mean Corpuscular Volume 94.8 fL (80-100); Monocytes Absolute Auto 2200 /uL (0-900); Monocytes Percent Auto 12.7 % (3-14); Neutrophils Absolute Auto 13900 /uL (1500-7000); Neutrophils Percent Auto 80.3 % (50-75); Platelet Count 304 X10^3/uL (150-400); Red Blood Cell Count 3.06 X10^6/uL (4.5-5.9); Red Cell Distribution Width 15.2 % (11.6-14.8); White Blood Cell Count 17.4 X10^3/uL (4.5-11.0)
[2024-04-14 15:08] VITALS: BP 110/77; PULSE 130; RESP 20; O2SAT 96
--- NOTE | 2024-04-14 15:09 | PC.NURSE ---
STEMI caled at 1445, 911 dispatched, [facility] contacted, EKG faxed. Pt &O4, no chest pain. 325 aspirin administered and heparin gtt initiated. at 1500 Med 16 at bedside and receiving report. Pt out the door at 1512.
[2024-04-14 15:16] LABS: INR 1.2 (0.9-1.3); Prothrombin Time 13.4 SECONDS (9.4-12.5)
[2024-04-14 15:18] LABS: PTT Partial Thromboplastin Tim 33 SECONDS (25.1-36.5)
--- NOTE | 2024-04-14 15:19 | PC.NURSE ---
Pt reports upper back pain last Sunday that has since resolved. Feeling weak, tired, loss of appetite and energy. Pt c/o some lower abdominal pain and thinks its an ulcer. EKG taken by RT Julio Cesar and immediately given to provider Kylie.
[2024-04-14 15:21] LABS: Alanine Aminotransferase 193 IU/L (<50); Albumin 3.9 g/dL (3.5-5.0); Albumin Globulin Ratio 1.1 (1.0-2.8); Alkaline Phosphatase 130 U/L (38-126); Aspartate Aminotransferase 153 IU/L (17-59); BUN Creatinine Ratio 25.6 (6-22); Blood Urea Nitrogen 44 mg/dL (9-20); Calcium 9.1 mg/dL (8.4-10.2); Carbon Dioxide 16 mmol/L (22-32); Chloride 99 mmol/L (98-107); Estimated Glomerular Filt Rate 40 mL/min (>60); Globulin 3.4 g/dL (1.7-4.1); Glucose 188 mg/dL (80-110); HEMOLYSIS < 15 (0-50); Lipase 78 U/L (23-300); Potassium 4.3 mmol/L (3.4-5.1); Sodium 129 mmol/L (137-145); Total Protein 7.3 g/dL (6.3-8.2)
[2024-04-14 15:23] LABS: Lactate (Lactic Acid) 4.1 mmol/L (0.7-2.1)
[2024-04-14 15:24] LABS: Creatine Kinase 166 U/L (55-170); Estimated Glomerular Filt Rate 41 mL/min (>60); Magnesium 2.3 mg/dL (1.6-2.3)
[2024-04-14 15:33] LABS: NT-proBNP (BNP-Adult 18+) 13500 pg/mL (<450)
[2024-04-14 15:38] LABS: Procalcitonin 0.245 ng/mL (<0.5)
[2024-04-14 16:37] LABS: Reflexed Lactate in 2 Hours Y
== END 2024-04-14 15:12 | disposition short-term general hospital (02) ==
PROVIDERS: Emergency Provider Student in an Organized Health Care Education/Training Program; PCP Student in an Organized Health Care Education/Training Program
DX: I21.19 ST elevation (STEMI) myocardial infarction involving other coronary artery of inferior wall (principal); I10 Essential (primary) hypertension; E78.5 Hyperlipidemia, unspecified
CPT/HCPCS: 36415; 71045; 80053; 82550; 82565; 83605; 83690; 83735; 83880; 84145; 84484; 85025; 85610; 85730; 87040; 93005; 96374; 99284; 99285; J1644